=== PATIENT | male | born 1945 | race Caucasian/White ===

== ENCOUNTER 2021-04-07 06:24 | Day surgery (SDC) | payer OTHER ==
[2021-04-07] MEDS ORDERED: NA CHLORIDE 0.9% 500 ML ONE (06:34)
[2021-04-07 06:58] VITALS: TEMP 97
[2021-04-07] MEDS ORDERED: METOPROLOL TARTRATE 5 MG/5 ML INJ IV ONE (07:01)
[2021-04-07] MEDS ORDERED: FENTANYL CITR 100 MCG/2 ML ONE (07:01)
[2021-04-07] MEDS ORDERED: MIDAZOLAM HCL 2 MG/2 ML INJ ONE ×2 (07:02→07:03)
[2021-04-07] MEDS ORDERED: ATROPINE SULF 1 MG/10 ML SYR IV ONE (07:02)
[2021-04-07] MEDS ORDERED: FLUMAZENIL 0.1 MG/ML (5 mL VIAL) IV ONE (07:02)
[2021-04-07] MEDS ORDERED: MIDAZOLAM HCL 5 ML ONE (08:10)
[2021-04-07 09:04] VITALS: BP 97/72; O2SAT 98
--- NOTE | 2021-04-07 09:26 | OP ---
Date of Procedure: 04/07/2021 Surgeon: DANNIELLE ECHEVERRIA Procedure Performed: Synchronized electrocardioversion. Indication: Symptomatic atrial fibrillation. Description Of Procedure: After risks, benefits, and alternatives including stroke explained to him, he agreed to the cardioversion. Patient was brought into the cardiac catheterization laboratory and IV line was established. Then 5 mg of Versed IV was given and the patient was deeply sedated, enlar ged closely and then synchronized 200 joules. Electrocardioversion was performed successfully conver ting the rhythm into sinus rhythm. The patient was stable and then sent to recovery in stable condit ion. Conclusions: 1.Successful electrical cardioversion. 2.Sinus rhythm. Plan: Continue amiodarone and Eliquis. SR/MODL Voice ID: [id number] Report ID: [id number]
== END 2021-04-07 09:45 | disposition home or self-care (01) ==
LOC: CCL 06:24
PROVIDERS: ATTEND Internal Medicine
DX: I48.91 Unspecified atrial fibrillation (principal); I11.0 Hypertensive heart disease with heart failure; I50.9 Heart failure, unspecified; E11.9 Type 2 diabetes mellitus without complications; E78.5 Hyperlipidemia, unspecified; Z79.01 Long term (current) use of anticoagulants; Z79.82 Long term (current) use of aspirin; Z79.899 Other long term (current) drug therapy; Z88.2 Allergy status to sulfonamides; Z20.822 Contact with and (suspected) exposure to COVID-19
CPT/HCPCS: 36415; 82947; 85730; 92960; U0003; J2250 ×2; J7040; J3010

== ENCOUNTER 2021-04-26 14:44 | Emergency (ER) | payer OTHER ==
--- OUTSIDE RECORDS SUMMARY | 2021-04-26 14:52 | XMS REPORT | Continuity of Care Document ---
:1945 Author Organization [facility] t Address 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 MANAGER, L Attending Clinician Ranjit RECREATION ATTENDANT SUPERVISOR Attending Clinician RANJIT Attending Clinician Unavailable [id number] Admitting Clinician Unavailable SHAUN COHEN Admitting Clinician Unavailable Shaun Cohen MD Admitting Clinician Payers Payer Name Policy Type Policy Number Effective Date Expiration Date S ource Problems Condition Condition Condition Status Onset Resolution Last Treating Co mments Source Name Details Category Date Date Treatment Clinician Date PONCHO (acute PONCHO (acute Disease Active U nivers kidney kidney 2-26 ity of injury) injury) 00:00: [place] [facility] Atrial Atrial Disease Active Univers fibrillati fibrillati 1-14 it y of on on 00:00: [place] [facility] Abdominal Abdominal Disease Active Uni vers pain pain 1-12 ity of 00:00: [place] [facility] Allergies, Adverse Reactions, Alerts Allergy Allergy Status Severity Reaction(s) Onset Inactive Treating Comm ents Source Name Type Date Date Clinician Sulfa Propensi Active Unknown - Unknown Univ ers (Sulfona ty to See comments 1-12 reaction, ity of mide adverse 00:00: as child [place] Antibiot reaction 00 was Medica l ics) s allergic Branch SULFA Drug Active Unknown-Cmnt Univ ers (SULFONA Class 1-12 ity of MIDE 00:00: [place] ANTIBIOT 00 Medical ICS) Branch Social History Social Habit Start Date Stop Date Quantity Comments Source Exposure to Not sure [facility] SARS-CoV-2 (event) Medica l Branch Tobacco use and 2021-02-22 2021-02-22 Never used [facility] exposure 00:00:00 00:00:00 Medical Branch [birth year] [facility] 00:00:00 00:00:00 Medical Branch Smoking Status Start Date Stop Date Source Never smoker [facility] Medications Ordered Filled Start Stop Current Ordering Indication Dosage Frequency Signature Comments Components Source Medication Medication Date Date Medication? Clinician (SIG) Name Name perflutren 2021- No [id number] 2mL 2 mL, IV Univers lipid -04-10 Push, ity of microsphere 18:45: 18:45 ONCE, 1 [place] 00 :00 dose, On Medical (DEFINITY) Mon Branch injection 2 04/10/21 at mL 1245, Routine brimonidine Yes brimonidin Univers 0.2 % 28 e 0.2 % ity of ophthalmic 18:27: eye drops [place] solution 42 INSTILL 1 Medica l DROP INTO Branch RIGHT EYE TWICE A DAY esomeprazol Yes esomeprazo Univers e 40 mg -28 le ity of capsule 18:27: magnesium [place] 42 40 mg Medical capsule,de Branch layed release metformin Yes 1000mg Take 1,000 Univers ER 500 mg 2-28 mg by ity of 24 hr 18:27: mouth 2 [place] tablet 42 (two) Medical times Branch daily. lamoTRIgine Yes 100mg Take 100 U nivers 25 mg 2-28 mg by ity of tablet 18:27: mouth [place] 42 daily. Medical Branch metoprolol Yes 50mg Take 50 mg U nivers tartrate 50 2-28 by mouth ity of mg tablet 18:27: every [place] [address] morning. Medical Branch QUEtiapine 0 Yes 25mg Take 25 mg U nivers 50 mg 2-28 by mouth ity of tablet 18:27: daily. [place] [address] Medical Branch dorzolamide Yes 4[drp] Place 4 U nivers HCl/timolol 2-28 Drops in ity of maleat 18:27: each eye. [place] (DORZOLAMID Medical E-TIMOLOL Branch OPHTHALMIC) amiodarone 0 Yes 200ug Take 200 Un tyshawn HCl 2-28 mcg by ity of (AMIODARONE 18:27: [place] at [place] ORAL) 42 bedtime. Medical Branch QUEtiapine Yes 25mg Take 25 mg U nivers 25 mg 2-28 by mouth ity of tablet 18:27: at [place] [address] bedtime. Medical Branch brimonidine Yes brimonidin Univers 0.2 % 2-28 e 0.2 % ity of ophthalmic 18:27: eye drops [place] solution 42 INSTILL 1 Medica l DROP INTO Branch RIGHT EYE TWICE A DAY esomeprazol Yes esomeprazo Univers e 40 mg 2-28 le ity of capsule 18:27: magnesium [place] [address] 40 mg Medical capsule,de Branch layed release metformin 0 Yes 1000mg Take 1,000 Univers ER 500 mg 2-28 mg by ity of 24 hr 18:27: mouth 2 [place] tablet 42 (two) Medical times Branch daily. lamoTRIgine 0 Yes 100mg Take 100 U nivers 25 mg 2-28 mg by ity of tablet 18:27: mouth [place] 42 daily. Medical Branch metoprolol Yes 50mg Take 50 mg U nivers tartrate 50 2-28 by mouth ity of mg tablet 18:27: every [place] [address] morning. Medical Branch QUEtiapine 0 Yes 25mg Take 25 mg U nivers 50 mg 2-28 by mouth ity of tablet 18:27: daily. [place] [address] Medical Branch dorzolamide Yes 4[drp] Place 4 U nivers HCl/timolol 2-28 Drops in ity of maleat 18:27: each eye. [place] (DORZOLAMID 42 Medical E-TIMOLOL Branch OPHTHALMIC) amiodarone Yes 200ug Take 200 Un tyshawn HCl 2-28 mcg by ity of (AMIODARONE 18:27: mouth at [place] ORAL) 42 bedtime. Medical Branch QUEtiapine Yes 25mg Take 25 mg U nivers 25 mg 28 by mouth ity of tablet 18:27: at [place] 42 bedtime. Medical Branch regadenoson 2021- No [id number] .4mg 0.4 mg, Univers (LEXISCAN) 04-10 Slow IV ity o f injection 16:15: 15:40 Push, [place] 0.4 mg 00 :00 ONCE, 1 Medical dose, On [facility] 04/10/21 at 1015, Routine
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 Restricted medication : TALHA HERNANDEZ tc 2021- No [id number] 43mCi 43 Univer s 99m-tetrofo 04-10 millicurie i ty of smin 15:45: 15:37 , [place] (MYOVIEW) 00 :00 Intravenou Medi ben injection s, ONCE, 1 Bran ch 43 dose, On [facility] 04/10/21 at 0945, Routine KCL 20 2021- No 20meq 20 mEq, Univer s mEq/15 mL 04-10 Oral, ity of solution 20 15:00: 18:41 ONCE, 1 [place] mEq 00 :00 dose, On Medical [facility] 04/10/21 at 0900, Routine magnesium 2021- No 2g 2 g, IV Univ ers sulfate in 04-10 Piggyback, it y of water 2 14:45: 18:41 ONCE, 1 [place] gram/50 mL 00 :00 dose, On Medic al (4 %) [facility] infusion 04/10/21 at g 0845, Routine tc 2021- No [id number] 16.9mCi 16.9 Univ ers 99m-tetrofo 04-10 millicurie i ty of smin 14:10: 14:10 , [place] (MYOVIEW) 00 :00 Intravenou Medi ben injection s, ONCE, 1 Bran ch 16.9 dose, On [facility] 04/10/21 at 0830, Routine HYDROcodone 2021- No 1{tbl} 1 tablet, Univers -acetaminop 04-10 Oral, ity of hen (NORCO 12:30: 11:23 ONCE, 1 [place] as 5) 5-325 mg 00 :00 dose, On Medi ben tablet 1 Mon Branch tablet 04/10/21 at 0630, Routine furosemide Yes [id number] 40mg Take 0.5 Univers 80 mg 04-10 [id number] tablets by ity of tablet 00:00: mouth [place] 00 every Medical morning Branch and evening. furosemide Yes [id number] 40mg Take 0.5 Univers 80 mg 04-10 [id number] tablets by ity of tablet 00:00: mouth [place] 00 every Medical morning Branch and evening. ferrous 2021- Yes [id number] 324mg Take 1 U nivers sulfate 324 04-10 tablet by it y of mg (65 mg 00:00: 04:59 mouth [place] iron) EC 00 :00 every Medical tablet Saturday, Branch Saturday and Saturday for 60 days. ferrous 2021- Yes [id number] 324mg Take 1 U nivers sulfate 324 04-10 tablet by it y of mg (65 mg 00:00: 04:59 mouth [place] iron) EC 00 :00 every Medical tablet Saturday, Branch Saturday and Saturday for 60 days. furosemide 2021- No [id number] 80mg Take 1 Univers 80 mg 04-10 [id number] tablet by ity of tablet 00:00: 00:00 mouth [place] 00 :00 every Medical morning Branch and evening for 90 days. furosemide Yes 40mg 40 mg, Unive rs (LASIX) 04-09 Slow IV ity of injection 20:00: Push, Q8H, [place] 40 mg 00 First dose Medical (after Branch last modificati on) on 04/09/21 at 1400, Until Discontinu ed, Routine KCL 20 2021- No 40meq 40 mEq, Univer s mEq/15 mL 04-09 Oral, ity of solution 40 16:15: 16:52 ONCE, 1 [place] mEq 00 :00 dose, On Medical [facility] 04/09/21 at 1015, Routine magnesium 2021- No 4g 4 g, IV Univ ers sulfate in 04-09 Piggyback, it y of water 4 09:00: 16:52 ONCE, 1 [place] gram/50 mL 00 :00 dose, On Medic al (8 %) IV [facility] Piggyback 4 04/09/21 at g 0300, Routine potassium 2021- No 20meq 20 mEq, IV Univers chloride 20 04-09 Piggyback, i ty of mEq/100 mL 08:00: 13:50 Q2H, 2 [place] (KCL) 20 00 :00 doses, Medical mEq/100 mL First dose [facility] RTU IVPB 20 on [place] mEq 04/09/21 at 0200, Last dose on [place] 04/09/21 at 0400, 100 mL melatonin Yes 6mg 6 mg, Univers (MELATIN) 04-09 Oral, QHS, ity of tablet 6 mg 03:00: First dose [place] 00 on [facility] 04/08/21 at Branch 2100, Until Discontinu ed, Routine atorvastati Yes 40mg 40 mg, Univ ers n (LIPITOR) 04-09 Oral, QHS, it y of tablet 40 03:00: First dose [place] mg 00 on [facility] 04/08/21 at Branch 2100, Until Discontinu ed, Routine amiodarone Yes 200mg 200 mg, Uni vers (PACERONE) 04-09 Oral, QHS, ity of tablet 200 03:00: First dose [place] mg 00 on [facility] 04/08/21 at Branch 2100, Until Discontinu ed lidocaine 2021- No 1{patch 1 Patch, Univers (LIDODERM) 04-08 } Topical, ity of 5 % (700 18:00: 05:45 Administer [place] mg/patch) 00 :00 over 12 Medical patch 1 Hours, Branch Patch ONCE, 1 dose, On [facility] 04/08/21 at 1200, KHADAR magnesium 0 2021- No 4g 4 g, IV Univ ers sulfate in 04-08 Piggyback, it y of water 4 15:30: 16:25 ONCE, 1 [place] gram/50 mL 00 :00 dose, On Medic al (8 %) IV [facility] Branch Piggyback 4 04/08/21 at g 0930, Routine metoprolol Yes 50mg 50 mg, Unive rs tartrate 04-08 Oral, QAM, ity o f (LOPRESSOR) 15:00: First dose [place] tablet 50 00 on Sat Medical mg 04/08/21 at Branch 0900, Until Discontinu ed, Routine lamoTRIgine Yes 100mg 100 mg, Un tyshawn (LAMICTAL) 04-08 Oral, ity of tablet 100 15:00: DAILY, [place] mg 00 First dose Medical on [facility] Branch 04/08/21 at 0900, Until Discontinu ed, Routine pantoprazol Yes 40mg 40 mg, Univ ers e 04-08 Oral, ity of (PROTONIX) 15:00: DAILY, [place] EC tablet 00 First dose Medi ben 40 mg on [facility] Branch 04/08/21 at 0900, Until Discontinu ed, Routine aspirin Yes 81mg 81 mg, Univers chewable 04-08 Oral, ity of tablet 81 15:00: DAILY, [place] mg 00 First dose Medical on [facility] Branch 04/08/21 at 0900, Until Discontinu ed, Routine QUEtiapine Yes 25mg 25 mg, Unive rs (SEROQUEL) 04-08 Oral, BID, ity of tablet 25 14:00: First dose [place] mg 00 on [facility] Medical 04/08/21 at Branch 0800, Until Discontinu ed, Routine dorzolamide Yes 1[drp] 1 Drop, U nivers -timoloL 04-08 Both Eyes, ity o f (COSOPT) 14:00: BID, First [place] as 22.3-6.8 00 dose on Medical mg/mL [facility] Branch ophthalmic 04/08/21 at drops 1 0800, Drop Until Discontinu ed furosemide 2021- No 40mg 40 mg, Univ ers (LASIX) 04-08 Slow IV ity of injection 14:00: 17:17 Push, [place] 40 mg 00 :21 Q12H, Medical First dose Branch on 04/08/21 at 0800, Until Discontinu ed, Routine brimonidine 2022-0 Yes 1[drp] 1 Drop, U nivers (ALPHAGAN) 2- Both Eyes, ity of 0.2 % 12:00: Q8H, First [place] ophthalmic 00 dose on Medica l solution 1 Sat Branch Drop 04/08/21 at 0600, Until Discontinu ed, Routine HEPARIN 2021- No 4000U 4,000 Univers SODIUM 2-26 02-26 Units, IV ity of (PORCINE) 12:00: 13:30 Push, [place] 1,000 00 :00 ONCE, 1 Medical UNIT/ML dose, On Branch BOLUS ACS Sat ORDER SET 04/08/21 at 0600, KHADAR heparin Yes 3000U FOR Univers (1,000 2-26 REBOLUSING ity of unit/mL, 10 11:52: , Starting [place] mL vial) 14 on Sat Medical for 04/08/21 at Branch Rebolusing 0552, Until Discontinu ed, Routine
Dosing based on aPPT testing parameters (refer to continuous heparin drip order).
heparin Yes 1000U/h 1,000 Univer s 25,000 2-26 Units/hr ity of Units/250 11:52: (10 [place] mL 14 mL/hr), IV Medical (Premixed Infusion, Branc h Bag) in TITRATE, 0.45 % NS Parameters in Admin. Instr., Starting on 04/08/21 at 0552
CA UTION - If LMWH given in ER, AVOID bolus and start next dose/drip 12 hrs after ER dosage.&nb sp; M ust program rate using programmab le infusion pump.&nbsp ; Malka ck with the ordering provider first prior to any administra tion should the patient be on existing/a dditional anticoagul ant therapy. Rang e, Dosing and Testing: &nbs p;FOR [place], [facility], AND [facility] ONLY - aPTT < 35: & nbsp;Bolus 5000 units, increase rate 300 units/hr&n bsp; - aPTT 35-44:&nbs p; Ahmet vanna 3000 units, increase rate 200 units/hr&n bsp; - aPTT 45-54:&nbs p; In crease rate 100 units/hr&n bsp; - aPTT 55-85:&nbs p; NO CHANGE&nbs p; - aPTT 86-95:&nbs p; De crease rate 100 units/hr&n bsp; - aPTT 96-120:&nb sp; H old 30 minutes, decrease rate 150 units/hr&n bsp; - aPTT > 120: Hold 60 minutes, decrease rate 200 units/hr&n bsp; Check aPTT 6 hours after initiation , then Q6H after every change, aPTT Q12H once therapeuti c levels are reached.&n bsp; &nbs p; __ &n bsp;FOR [facility] ONLY - aPTT < 40: & nbsp;Bolus 5000 units, increase rate 300 units/hr&n bsp; - aPTT 40-49:&nbs p; Ahmet vanna 3000 units, increase rate 200 units/hr&n bsp; - aPTT 50-59:&nbs p; In crease rate 100 units/hr&n bsp; - aPTT 60-85:&nbs p; NO CHANGE&nbs p; - aPTT 86-95:&nbs p; De crease rate 100 units/hr&n bsp; - aPTT 96-120:&nb sp; H old 30 minutes, decrease rate 150 units/hr&n bsp; - aPTT > 120: Hold 60 minutes, decrease rate 200 units/hr&n bsp; Check aPTT 6 hours after initiation , then Q6H after every change, aPTT Q12H once therapeuti c levels are reached.&n bsp; DO NOT ADJUST INITIAL BOLUS OR INITIAL INFUSION RATE.
acetaminoph Yes 650mg 650 mg, Un tyshawn en 04-08 Oral, ity of (TYLENOL) 11:36: Q6HPRN, [place] tablet 650 25 Starting Medic al mg on Sat Branch 04/08/21 at 0536, Until Discontinu ed, Routine, Pain (scale 1-3) alum-mag 2021- No 30mL 30 mL, Univer s hydroxide-s 04-08 Oral, ONCE i ty of imeth 09:00: 09:09 NOW, 1 [place] (MAALOX 00 :00 dose, On Medical PLUS / Sat Branch MAG-AL 04/08/21 at PLUS) 0300, KHADAR 200-200-20 mg/5 mL suspension 30 mL NaCl 0.9% 2021- No 1000mL at 999 Uni vers (NS) bolus 04-08 mL/hr, ity of infusion 05:00: 06:07 1,000 mL, [place] as 1,000 mL 00 :00 IV Medical Infusion, Branch ONCE, 1 dose, On 04/07/21 at 2300, STAT piperacilli 2021- No 2.25g 2.25 g, IV Univers n-tazobacta 04-08 Piggyback, i ty of m (ZOSYN) 05:00: 04:32 ONCE, 1 [place] 2.25 g in 00 :00 dose, On Medica l NaCl 0.9% Fri Branch (NS) 100 mL 04/07/21 at MINI-BAG 2300, Administer over 30 Minutes, 100 mL
R aric for Anti-Infec tive: Documented Infection< br>Documen liborio Infection Site: Abdominal< br>Duratio n of Therapy: Other (see Comments) FENTanyl PF 2021- No 100ug 100 mcg, Univers (SUBLIMAZE 04-08 Slow IV ity o f (PF)) 04:00: 03:31 Push, [place] injection 00 :00 ONCE, 1 Medical 100 mcg dose, On Branch 04/07/21 at 2200, STAT NaCl 0.9% 2021- No 1000mL at 999 Uni vers (NS) bolus 04-08 mL/hr, ity of infusion 02:30: 03:36 1,000 mL, [place] as 1,000 mL 00 :00 IV Medical Infusion, Branch ONCE, 1 dose, On 04/07/21 at 2030, STAT iohexol 2021- No [id number] 120mL 120 mL, Univers (OMNIPAQUE 04-08 Intravenou it y of 350 02:00: 01:54 s, ONCE, 1 [place] BULK-100 00 :00 dose, On Medical mL) Fri Branch injection 04/07/21 at 120 mL 2000, Routine morpHINE 2021- No 4mg 4 mg, Slow Un tyshawn injection 4 04-08 IV Push, ity of mg 02:00: 01:06 ONCE, 1 [place] 00 :00 dose, On Medical Fri Branch 04/07/21 at 2000, STAT traZODone Yes [id number] 100mg Take 1 Univers 100 mg 2-11 tablet by ity of tablet 00:00: mouth at [place] 00 bedtime. Medical Branch traZODone 2021- No [id number] 100mg Take 1 Univers 100 mg 2-11 04-08 tablet by ity of tablet 00:00: 00:00 mouth at [place] 00 :00 bedtime. Medical Branch cyanocobala 2021- No [id number] 2000ug Univers min 03-01 ity of (VITAMIN 22:45: 21:36 [place] B12) 00 :00 Medical injection Branch 2,000 mcg cyanocobala 2021- No [id number] 2000ug 2,000 mcg, Univers min 03-01 Intramuscu ity of (VITAMIN 22:45: 21:36 lar, ONCE, [place] B12) 00 :00 1 dose, On Medical injection Wed Branch 2,000 mcg 03/01/21 at 1645, Routine traZODone 2021- No [id number] 100mg Take 1 Univers 100 mg 03-01 02-11 tablet by ity of tablet 00:00: 00:00 mouth at [place] 00 :00 bedtime. Medical Branch brimonidine Yes brimonidin Univers 0.2 % 1-17 e 0.2 % ity of ophthalmic 06:40: eye drops [place] solution 02 INSTILL 1 Medica l DROP INTO Branch RIGHT EYE TWICE A DAY esomeprazol Yes esomeprazo Univers e 40 mg 1-17 le ity of capsule 06:40: magnesium [place] 02 40 mg Medical capsule,de Branch layed release metformin Yes metformin Uni vers ER 500 mg 1-17 ER 500 mg ity o f 24 hr 06:40: tablet,ext [place] tablet 02 ended Medical release 24 Branch hr TAKE 2 TABLETS TWICE A DAY lamoTRIgine Yes lamotrigin Univers 25 mg 1-17 e 25 mg ity of tablet 06:40: tablet [facility] brimonidine Yes brimonidin Univers 0.2 % -17 e 0.2 % ity of ophthalmic 06:40: eye drops [place] solution 02 INSTILL 1 Medica l DROP INTO Branch RIGHT EYE TWICE A DAY esomeprazol Yes esomeprazo Univers e 40 mg 1-17 le ity of capsule 06:40: magnesium [place] 02 40 mg Medical capsule,de Branch layed release metformin Yes metformin Uni vers ER 500 mg 1-17 ER 500 mg ity o f 24 hr 06:40: tablet,ext [place] tablet 02 ended Medical release 24 Branch hr TAKE 2 TABLETS TWICE A DAY lamoTRIgine Yes lamotrigin Univers 25 mg 1-17 e 25 mg ity of tablet 06:40: tablet [facility] brimonidine Yes brimonidin Univers 0.2 % 1-17 e 0.2 % ity of ophthalmic 06:40: eye drops [place] solution 02 INSTILL 1 Medica l DROP INTO Branch RIGHT EYE TWICE A DAY esomeprazol Yes esomeprazo Univers e 40 mg 1-17 le ity of capsule 06:40: magnesium [place] 02 40 mg Medical capsule,de Branch layed release metformin Yes metformin Uni vers ER 500 mg 1-17 ER 500 mg ity o f 24 hr 06:40: tablet,ext [place] tablet 02 ended Medical release 24 Branch hr TAKE 2 TABLETS TWICE A DAY lamoTRIgine 0 Yes lamotrigin Univers 25 mg 1-17 e 25 mg ity of tablet 06:40: tablet [place] 02 Medical Branch aspirin 81 0 Yes [id number] 81mg Take 1 Univers mg chewable 1-16 tablet by ity of tablet 00:00: mouth [place] 00 daily. Medical Branch lisinopriL 0 Yes [id number] 5mg Take 1 Univers 5 mg tablet 1-16 tablet by ity of 00:00: mouth [place] 00 daily. Medical Branch venlafaxine Yes [id number] 150mg Take 1 Univers XR 150 mg 1-16 capsule by ity of 24 hr 00:00: mouth [place] capsule 00 daily with Medica l breakfast. Branch clonazePAM 0 Yes [id number] .25mg Take 0.5 Univers 0.5 mg 1-16 tablets by ity of tablet 00:00: mouth [place] 00 daily. Medical Branch aspirin 81 0 Yes [id number] 81mg Take 1 Univers mg chewable 1-16 tablet by ity of tablet 00:00: mouth [place] 00 daily. Medical Branch lisinopriL 0 Yes [id number] 5mg Take 1 Univers 5 mg tablet 1-16 tablet by ity of 00:00: mouth [place] 00 daily. Medical Branch venlafaxine 0 Yes [id number] 150mg Take 1 Univers XR 150 mg 1-16 capsule by ity of 24 hr 00:00: mouth [place] capsule 00 daily with Medica l breakfast. Branch clonazePAM 0 Yes [id number] .25mg Take 0.5 Univers 0.5 mg 1-16 tablets by ity of tablet 00:00: mouth [place] 00 daily. Medical Branch aspirin 81 0 Yes [id number] 81mg Take 1 Univers mg chewable 1-16 tablet by ity of tablet 00:00: mouth [place] 00 daily. Medical Branch lisinopriL 0 Yes [id number] 5mg Take 1 Univers 5 mg tablet 1-16 tablet by ity of 00:00: mouth [place] 00 daily. Medical Branch venlafaxine Yes [id number] 150mg Take 1 Univers XR 150 mg 1-16 capsule by ity of 24 hr 00:00: mouth [place] capsule 00 daily with Medica l breakfast. Branch clonazePAM Yes [id number] .25mg Take 0.5 Univers 0.5 mg 1-16 tablets by ity of tablet 00:00: mouth [place] 00 daily. Medical Branch aspirin 81 Yes [id number] 81mg Take 1 Univers mg chewable 1-16 tablet by ity of tablet 00:00: mouth [place] 00 daily. Medical Branch lisinopriL Yes [id number] 5mg Take 1 Univers 5 mg tablet 1-16 tablet by ity of 00:00: mouth [place] 00 daily. Medical Branch aspirin 81 Yes [id number] 81mg Take 1 Univers mg chewable 1-16 tablet by ity of tablet 00:00: mouth [place] 00 daily. Medical Branch lisinopriL Yes [id number] 5mg Take 1 Univers 5 mg tablet 1-16 tablet by ity of 00:00: mouth [place] 00 daily. Medical Branch venlafaxine 2021- No [id number] 150mg Take 1 Univers XR 150 mg 1-16 -26 capsule by ity of 24 hr 00:00: 00:00 mouth [place] capsule 00 :00 daily with Medica l breakfast. Branch clonazePAM 2021- No [id number] .25mg Take 0.5 Univers 0.5 mg 1-16 -26 tablets by ity of tablet 00:00: 00:00 mouth [place] 00 :00 daily. Medical Branch atorvastati Yes [id number] 40mg Take 1 Univers n 40 mg 1-15 tablet by ity of tablet 00:00: mouth at [place] 00 bedtime. Medical Branch apixaban 5 Yes 1358 5mg Take 1 Unive rs mg tablet 1-15 tablet by ity o f 00:00: mouth 2 [place] 00 (two) Medical times Branch daily. Indication s: atrial fibrillati on metoprolol Yes [id number] 50mg Take 1 Univers succinate 1-15 tablet by ity o f XL 50 mg 24 00:00: mouth 2 [place] as hr tablet 00 (two) Medical times Branch daily. polyethylen Yes [id number] 17g Take 1 Univers e glycol 1-15 Packet by ity of 3350 17 00:00: mouth 2 [place] gram powder 00 (two) Medical times Branch daily. ramelteon 8 0 Yes [id number] 8mg Take 1 Univers mg tablet 1-15 tablet by ity o f 00:00: mouth at [place] 00 bedtime. Medical Branch atorvastati Yes [id number] 40mg Take 1 Univers n 40 mg 1-15 tablet by ity of tablet 00:00: mouth at [place] 00 bedtime. Medical Branch apixaban 5 Yes 1358 5mg Take 1 Unive rs mg tablet 1-15 tablet by ity o f 00:00: mouth 2 [place] (two) Medical times Branch daily. Indication s: atrial fibrillati on metoprolol Yes [id number] 50mg Take 1 Univers succinate 1-15 tablet by ity o f XL 50 mg 24 00:00: mouth 2 [place] as hr tablet 00 (two) Medical times Branch daily. polyethylen Yes [id number] 17g Take 1 Univers e glycol 1-15 Packet by ity of 3350 17 00:00: mouth 2 [place] gram powder 00 (two) Medical times Branch daily. ramelteon 8 Yes [id number] 8mg Take 1 Univers mg tablet 1-15 tablet by ity o f 00:00: mouth at [place] 00 bedtime. Medical Branch atorvastati Yes [id number] 40mg Take 1 Univers n 40 mg 1-15 tablet by ity of tablet 00:00: mouth at [place] 00 bedtime. Medical Branch apixaban 5 Yes 1358 5mg Take 1 Unive rs mg tablet 1-15 tablet by ity o f 00:00: mouth 2 [place] 00 (two) Medical times Branch daily. Indication s: atrial fibrillati on metoprolol 0 Yes [id number] 50mg Take 1 Univers succinate 1-15 tablet by ity o f XL 50 mg 24 00:00: mouth 2 [place] as hr tablet 00 (two) Medical times Branch daily. polyethylen 0 Yes [id number] 17g Take 1 Univers e glycol 1-15 Packet by ity of 3350 17 00:00: mouth 2 [place] gram powder 00 (two) Medical times Branch daily. ramelteon 8 Yes [id number] 8mg Take 1 Univers mg tablet 1-15 tablet by ity o f 00:00: mouth at [place] 00 bedtime. Medical Branch atorvastati Yes [id number] 40mg Take 1 Univers n 40 mg 1-15 tablet by ity of tablet 00:00: mouth at [place] 00 bedtime. Medical Branch apixaban 5 Yes 1358 5mg Take 1 Unive rs mg tablet 1-15 tablet by ity o f 00:00: mouth 2 [place] 00 (two) Medical times Branch daily. Indication s: atrial fibrillati on polyethylen Yes [id number] 17g Take 1 Univers e glycol 1-15 Packet by ity of 3350 17 00:00: mouth 2 [place] gram powder 00 (two) Medical times Branch daily. atorvastati Yes [id number] 40mg Take 1 Univers n 40 mg 1-15 tablet by ity of tablet 00:00: mouth at [place] 00 bedtime. Medical Branch apixaban 5 Yes 1358 5mg Take 1 Unive rs mg tablet 1-15 tablet by ity o f 00:00: mouth 2 [place] 00 (two) Medical times Branch daily. Indication s: atrial fibrillati on polyethylen Yes [id number] 17g Take 1 Univers e glycol 1-15 Packet by ity of 3350 17 00:00: mouth 2 [place] gram powder 00 (two) Medical times Branch daily. metoprolol 2021- No [id number] 50mg Take 1 Univers succinate 1-15 -26 tablet by ity of XL 50 mg 24 00:00: 00:00 mouth 2 [place] hr tablet 00 :00 (two) Medical times Branch daily. ramelteon 8 2021- No [id number] 8mg Take 1 Univers mg tablet 1-15 02-26 tablet by ity of 00:00: 00:00 mouth at [place] 00 :00 bedtime. Medical Branch JARDIANCE 2020-02 Yes Univers 25 mg Tab 1-19 ity of 00:00: [place] 00 Medical Branch JARDIANCE 2020-02 Yes Univers 25 mg Tab 1-19 ity of 00:00: [place] 00 Medical Branch JARDIANCE 2020-02 Yes Univers 25 mg Tab 1-19 ity of 00:00: Medical Branch JARDIANCE 2020-02 Yes Univers 25 mg Tab 1-19 ity of 00:00: [place] [facility] JARDIANCE 2020-02 Yes Univers 25 mg Tab 1-19 ity of 00:00: [place] [facility] Immunizations Ordered Filled Immunization Date Status Comments [facility] e Immunization Name Name SARS-COV-2 COVID-19 2020-05-28 Completed Unive rsity of MODERNA VACCINE 00:00:00 [facility] SARS-COV-2 COVID-19 2020-05-28 Completed Unive rsity of MODERNA VACCINE 00:00:00 [facility] SARS-COV-2 COVID-19 2020-05-28 Completed Unive rsity of MODERNA VACCINE 00:00:00 [facility] SARS-COV-2 COVID-19 2020-05-28 Completed Unive rsity of MODERNA VACCINE 00:00:00 [facility] SARS-COV-2 COVID-19 2020-05-28 Completed Unive rsity of MODERNA VACCINE 00:00:00 [facility] SARS-COV-2 COVID-19 2020-04-27 Completed Unive rsity of MODERNA VACCINE 00:00:00 [facility] SARS-COV-2 COVID-19 2020-04-27 Completed Unive rsity of MODERNA VACCINE 00:00:00 [facility] SARS-COV-2 COVID-19 2020-04-27 Completed Unive rsity of MODERNA VACCINE 00:00:00 [facility] SARS-COV-2 COVID-19 2020-04-27 Completed Unive rsity of MODERNA VACCINE 00:00:00 [facility] SARS-COV-2 COVID-19 2020-04-27 Completed Unive rsity of MODERNA VACCINE 00:00:00 [facility] Pneumococcal 13 2014-10-11 Completed Universit y of Conjugate, PCV13 00:00:00 [facility] dical (Prevnar 13) Branch Pneumococcal 13 2014-10-11 Completed Universit y of Conjugate, PCV13 00:00:00 [facility] dical (Prevnar 13) Branch Pneumococcal 13 2014-10-11 Completed Universit y of Conjugate, PCV13 00:00:00 [facility] dical (Prevnar 13) Branch Pneumococcal 13 2014-10-11 Completed Universit y of Conjugate, PCV13 00:00:00 [facility] dical (Prevnar 13) Branch Pneumococcal 13 2014-10-11 Completed Universit y of Conjugate, PCV13 00:00:00 [facility] dical (Prevnar 13) Branch Zoster(Zostavax)( 2009-11-02 Completed Unive rsity of ingles) 00:00:00 [facility] Zoster(Zostavax)( 2009-11-02 Completed Unive rsity of ingles) 00:00:00 [facility] Zoster(Zostavax)( 2009-11-02 Completed Unive rsity of ingles) 00:00:00 [facility] Zoster(Zostavax)( 2009-11-02 Completed Unive rsity of ingles) 00:00:00 [facility] Zoster(Zostavax)( 2009-11-02 Completed Unive rsity of ingles) 00:00:00 [facility] Vital Signs Vital Name Observation Time Observation Value Comments Source Systolic blood 2021-04-10 21:57:00 130 mm[Hg] Univer sity of pressure [facility] Diastolic blood 2021-04-10 21:57:00 75 mm[Hg] Unive rsity of pressure [facility] Heart rate 2021-04-10 21:57:00 67 /min [facility] Body temperature 2021-04-10 21:57:00 35.78 Agatha [facility] rate 2021-04-10 21:57:00 18 /min [facility] Oxygen saturation in 2021-04-10 21:57:00 99 /min [facility] Arterial blood by [facility] Pulse oximetry Branch Body height 2021-04-10 18:43:00 182.9 cm [facility] Body weight 2021-04-10 18:43:00 88.451 kg [facility] BMI 2021-04-10 18:43:00 26.45 kg/m2 [facility] Systolic blood 2021-04-08 06:00:00 151 mm[Hg] Univer sity of pressure [facility] Diastolic blood 2021-04-08 06:00:00 98 mm[Hg] Unive rsity of pressure [facility] Heart rate 2021-04-08 06:00:00 65 /min Universi ty of [facility] Respiratory rate 2021-04-08 06:00:00 18 /min Univ ersity of [facility] Oxygen saturation in 2021-04-08 06:00:00 99 /min University of Arterial blood by [facility] Pulse oximetry Branch Body temperature 2021-04-08 00:31:00 35.78 Agatha Univ ersity of [facility] Body height 2021-04-08 00:31:00 182.9 cm Universi ty of [facility] Body weight 2021-04-08 00:31:00 87.544 kg Universi ty of [facility] BMI 2021-04-08 00:31:00 26.18 kg/m2 Universi ty [facility] Systolic blood 2021-03-01 19:25:00 130 mm[Hg] Univer sity of [facility] Diastolic blood 2021-03-01 19:25:00 95 mm[Hg] Unive rsity of [facility] Heart rate 2021-03-01 19:25:00 123 /min Universi ty [facility] Oxygen saturation in 2021-03-01 19:25:00 96 /min University of Arterial blood by [facility] Pulse oximetry Branch Body temperature 2021-03-01 19:23:00 36.94 Agatha Univ ersity of [facility] Respiratory rate 2021-03-01 19:23:00 20 /min Univ ersity of [facility] Body weight 2021-03-01 19:23:00 85.276 kg Universi ty of [facility] BMI 2021-03-01 19:23:00 25.50 kg/m2 Universi ty [facility] Procedures Procedure Date / Time Performing Clinician Source Performed ACTIVATED PARTIAL 2021-04-10 20:34:00 Cooper [facility] TRANSTHORACIC ECHO (TTE) 2021-04-10 18:10:00 Rodolfo Khan [facility] COMPLETE W/ CONTRAST [facility] NM MYOCARDIUM PERFUSION 2021-04-10 16:36:00 Erin [facility] STRESS AND REST Medical Branch MAGNESIUM 2021-04-10 08:08:00 Erin, [facility] BASIC METABOLIC PANEL 2021-04-10 08:08:00 [facility] (NA, K, CL, CO2, GLUCOSE, Medica l Branch BUN, CREATININE, CA) CBC WITHOUT DIFF 2021-04-10 08:08:00 Erin, [facility] PROTHROMBIN TIME / INR 2021-04-10 08:08:00 Erin [facility] ACTIVATED PARTIAL 2021-04-10 08:08:[facility]ON [facility]EL 2021-04-09 18:03:00 Erin, [facility] ACTIVATED PARTIAL 2021-04-09 18:03:00 Ludy [facility] MAGNESIUM 2021-04-09 07:18:00 Erin, [facility] FERRITIN SERUM 2021-04-09 07:18:00 Erin, [facility] HEPATIC FUNCTION PANEL 2021-04-09 07:18:00 [facility] ([id number]) (ALB,T.PRO,BILI Medical Branch T,BU/BC,ALT,AST,ALK PHOS) BASIC METABOLIC PANEL 2021-04-09 07:18:00 [facility] (NA, K, CL, CO2, GLUCOSE, Medica l Branch BUN, CREATININE, CA) CBC WITH DIFF 2021-04-09 07:18:00 [place], [facility] ACTIVATED PARTIAL 2021-04-09 05:02:00 [place], [facility] ACTIVATED PARTIAL 2021-04-08 19:49:00 [place], [facility] HEPARIN ANTI-XA, 2021-04-08 19:49:00 [facility] UNFRACTION[facility] HE[facility] Medical B ranch PHOSPHORUS 2021-04-08 12:37:00 [place], [facility] MAGNESIUM 2021-04-08 12:37:00 [place], [facility] HEPATIC FUNCTION PANEL 2021-04-08 12:37:00 [place], [facility] ([id number]) (ALB,T.PRO,BILI Medical Branch T,BU/BC,ALT,AST,ALK PHOS) BASIC METABOLIC PANEL 2021-04-08 12:37:00 [facility] (NA, K, CL, CO2, GLUCOSE, Medica l Branch BUN, CREATININE, CA) CBC WITH DIFF 2021-04-08 12:37:00 [facility] PROTHROMBIN TIME / INR 2021-04-08 12:37:00 [facility] ACTIVATED PARTIAL 2021-04-08 12:37:00 [facility] LACTIC ACID WHOLE BLOOD 2021-04-08 10:39:00 [facility] LACTIC ACID WHOLE BLOOD 2021-04-08 04:35:00 Fadi [facility] COVID-19 (ID NOW RAPID 2021-04-08 03:54:00 Salma Aponte [facility] TESTING) Medical Branch US GALL BLADDER 2021-04-08 03:21:59 Fadi [facility] CT ABDOMEN PELVIS W 2021-04-08 01:59:11 Salma Aponte [facility] CONTRAST [facility] Branch XR CHEST 1 VW 2021-04-08 01:16:16 Fadi [facility] LIPASE 2021-04-08 01:10:00 Fadi [facility] TROPONIN I 2021-04-08 01:10:00 Fadi [facility] COMP. METABOLIC PANEL 2021-04-08 01:10:00 [facility] ([id number] Medical Branch CBC WITH DIFF 2021-04-08 01:10:00 [facility] / INR 2021-04-08 01:10:00 Salma Aponte [facility] ACTIVATED PARTIAL 2021-04-08 01:10:00 [facility]-TERMINAL PRO-BNP 2021-04-08 01:10:00 [facility] LACTIC ACID WHOLE BLOOD 2021-04-08 01:10:00 Salma Aponte [facility] NOTICE OF PRIVACY 2021-04-08 00:27:19 Doctor BetinassYeison acevedo [facility] PRACTICES [facility] CONSENT/REFUSAL FOR 2021-04-08 00:26:04 Doctor Unassigned, Brendon [facility] DIAGNOSIS AND TREATMENT [facility] Encounters Start End Encounter Admission Attending Care Care Encounter Source Date/Time Date/Time Type Type Clinicians Facility Department ID 2021-03-27 Outpatient 3 [id number] [facility] OTH [id number] [facility] 14:33:46 0214 2021-03-22 Outpatient 3 [id number] [facility] REF [id number] [facility] 13:12:36 0209 2021-04-14 2021-04-14 Outpatient Paige SANTANA [facility] [id number] Univers 14:00:00 14:00:[id number] [facility] 2021-04-11 2021-04-11 Transition RADHA Moise [id number] Univers 00:00:00 00:00:00 of Care An PENNY [id number] [facility] 4.2.7.2.686 [facility] [id number] [facility] 403 Branch 2021-04-08 2021-04-10 [id number] Univers 02:02:00 18:25:00 [facility] 2021-04-08 2021-04-10 [facility] Jeff Lai [id number] Univers 02:02:00 18:25:00 Encounter Dedrick Cohen 350.1.13. 10 [facility] 4.2.7.2.686 [place] [id number] [facility] 100 Branch 2021 2021-04-08 [facility] [id number] Univers 18:28:00 00:55:[address] [facility] 2021 2021-04-08 Emergency [facility] [id number] Univers 18:28:00 00:55:00 Salma SKELTON [id number] i ty of [place] [id number] [facility] [address] [place] 2021-03-08 2021-03-08 [facility] [id number] Univers 00:00:00 00:00:00 Renetta SKELTON [id number] i ty [place] [id number] Ak dical NAL 231 [facility] 2021-03-01 2021-03-01 Office Ranjit [facility] [id number] [facility] 13:00:00 14:53:22 Visit Isai SKELTON [id number] ity [facility] [place] [id number] Ak dical NAL 044 [facility] 2021-03-01 2021-03-01 Outpatient R ISAI CHURCH [facility] [id number] Univers 13:00:00 14:53:[address] [facility] Results Test Description Test Time Test Comments Results Result Comments Source aPTT (for use with Heparin Infusion) 2021-04-10 20:59:39 Test Item Value Reference Range Interpretation Comme nts APTT Patient (test code = See_Comment H [ Automated message] The system 3173-2) which generated this result transmitted ref erence range: 26 - 36 Seconds. T he reference range was not u sed to interpret this result as normal/abnormal. Lab Interpretation (test code Abnormal = 04572-4) [facility]OLIC PANEL (NA, K, CL, CO2, GLUCOSE, BUN, CREATININE, CA)2021-04-10 08:47:39 Test Item Value Reference Range Interpretation Comments NA (test code = 135 mmol/L 135-145 7467508382) K (test code = 3.8 mmol/L 3.5-5.0 3101365930) CL (test code = 104 mmol/L 98-108 1182763126) CO2 TOTAL (test code = 25 mmol/L 23-31 7833493636) AGAP (test code = 2-16 6037380821) BUN (test code = 25 mg/dL 7-23 H 7395187854) GLUCOSE (test code = 266 mg/dL 70-110 H 0560730978) CREATININE (test code = 1.23 mg/dL 0.60-1.25 6018531284) CALCIUM (test code = 7.7 mg/dL 8.6-10.6 L 9534375339) eGFR (test code = mL/min/1.73m2 2137988773) MEGHANN (test code = MEGHANN) Association of Glomerular Filtration Rate (GFR) and Staging of Kidney Disease* + --+ --+ ------+| GFR (mL/min/1.73 m2) ?| With Kidney Damage ?| ?Without Kidney Damage+ --------+ --------+ +| ?>90 ?| ?Stage one ?| ? Normal ?+ ---+ ---+ -------+| ?60-89 ?| ?Stage two ?| ? Decreased GFR ? + --+ --+ ------+| ?30-59 ?| ?Stage three ?| ? Stage three ? + --+ --+ ------+| ?15-29 ?| ?Stage four ? | ? Stage four ?+ ---+ ---+ -------+| ?<15 (or dialysis) ? ?| ?Stage five ? | ? Stage five ?+ ---+ ---+ -------+ *Each stage assumes the associated GFR level has been in effect for at least three months. ?Stages 1 to 5, with or without kidney disease, indicate chronic kidney disease. Notes: Determination of stages one and two (with eGFR >59mL/min/1.73 m2) requires estimation of kidney damage for at least three months as defined by structural or functional abnormalities of the kidney, manifested by either:Pathological abnormalities or Markers of kidney damage (including abnormalities in the composition of the blood or urine or abnormalities in imaging tests). Lab Interpretation Abnormal (test code = 80033-0) [facility]39 Test Item Value Reference Range Interpretation Comments MAGNESIUM (test code = 4669539162) 1.8 mg/dL 1.7-2.4 Lab Interpretation (test code = Normal 02125-3) [facility] HospitalaP[facility] (for use with Heparin Infusion)2021-04-10 08:25:37 Test Item Value Reference Range Interpretation Comments APTT Patient (test code See_Comment H [Au tomated message] = 3173-2) The system [place] DEPT. generated this result transmitted ref erence range: 26 - 36 Seconds. The reference range was not used to int erpret this result as normal/abnormal . Lab Interpretation (test Abnormal code = 67075-4) [facility] HospitalPROTHROMBIN TIME / [id number] 08:25:37 Test Item Value Reference Range Interpretation Comments PROTIME PATIENT (test See_Comment H [Auto mated message] code = 5964-2) The system [employer] generated this result transmitted ref erence range: 10.1 - 1 2.6 Seconds. The reference range was not used to int erpret this result as normal/abnormal . INR (test code = 6301-6) Nor mal INR <1.1; Warfarin Therap eutic range 2.0 to 3. 0 or 2.5 to 3.5, dep ending upon the indica tions. Lab Interpretation (test Abnormal code = 93330-5) [facility] HospitalCBC WITHOUT [id number] 08:20:56 Test Item Value Reference Range Interpretation Comments WBC (test code = 6690-2) See_Comment [A utomated message] The system [place] DEPT. generated this result transmit liborio reference range : 4.20 - 10.70 10*3/?L. The reference range was not used to interpret this result as normal/abnormal . RBC (test code = 789-8) See_Comment L [Au tomated message] The system PS DEPT. generated this result transmit liborio reference range : 4.26 - 5.52 10* 6/?L. The reference r yovani was not used to interpret this result as normal/abnormal . HGB (test code = 718-7) 9.5 g/dL 12.2-16.4 L HCT (test code = 4544-3) 30.0 % 38.4-49.3 L MCH (test code = 785-6) 25.6 pg 26.1-32.7 L MCV (test code = 787-2) 80.9 fL 81.7-95.6 L MCHC (test code = 786-4) 31.7 g/dL 31.2-35.0 PLT (test code = 777-3) See_Comment L [Au tomated message] The system PS DEPT. generated this result transmit liborio reference range : 150 - 328 10*3/?L. The reference range was not used to interpret this result as normal/abnormal . MPV (test code = 11.6 fL 9.8-13.0 23180-5) RDW-CV (test code = 19.8 % 12.1-15.4 H 788-0) RDW-SD (test code = 56.7 fL 38.5-51.6 H 22055-2) NRBC x10^3 (test code = <0.01 See_Comment [Au tomated message] 4045998906) The system PS DEPT. generated this result transmit liborio reference range : 10*3/?L. The reference range was not used to interpret this result as normal/abnormal . NRBC/100 WBC (test code See_Comment [Au tomated message] = 3680555153) The system [employer] generated this result transmit liborio reference range : 0.0 - 10.0 /100 WBC s. The reference r yovani was not used to interpret this result as normal/abnormal . IPF % (test code = 4438727042) Lab Interpretation (test Abnormal code = 46113-1) [facility] HospitalIRON [id number] 19:08:59 Test Item Value Reference Range Interpretation Comments IRON (test code = 9896698416) 18 ug/dL 50-160 L TIBC (test code = 8442711608) 409 ug/dL 250-410 % FE SAT (test code = 1657122124) 4 % 20-50 L Lab Interpretation (test code = Abnormal 85355-7) [facility] HospitalFERRITIN [id number] 18:39:35 Test Item Value Reference Range Interpretation Comments FERRITIN (test code = 11.5 ng/mL 18.0-464.0 L 5677530317) MEGHANN (test code = MEGHANN) Biotin has been reported to cause a negative bias, interpret results relative to patient's use of biotin. Lab Interpretation (test Abnormal code = 60653-4) [facility] HospitalaPTT (for use with Heparin Infusion)2021-04-09 18:30:37 Test Item Value Reference Range Interpretation Comments APTT Patient (test code See_Comment H [Au tomated message] = 3173-2) The system [employer] generated this result transmitted ref erence range: 26 - 36 Seconds. The reference range was not used to int erpret this result as normal/abnormal . Lab Interpretation (test Abnormal code = 09517-3) [facility] HospitalCB with [id number] 08:13:01 Test Item Value Reference Range Interpretation Comments WBC (test code = See_Comment [Automated 6690-2) message] The sy stem which generated this result transmitted reference range : 4.20 - 10.70 10*3/?L. The reference range was not used to interpret this result as normal/abnormal . RBC (test code = See_Comment L [Automated 789-8) message] The sy stem which generated this result transmitted reference range : 4.26 - 5.52 10*6/?L. The reference range was not used to interpret this result as normal/abnormal . HGB (test code = 9.7 g/dL 12.2-16.4 L 718-7) HCT (test code = 30.2 % 38.4-49.3 L 4544-3) MCV (test code = 80.5 fL 81.7-95.6 L 787-2) MCH (test code = 25.9 pg 26.1-32.7 L 785-6) MCHC (test code = 32.1 g/dL 31.2-35.0 786-4) RDW-SD (test code = 57.3 fL 38.5-51.6 H 26287-9) RDW-CV (test code = 19.9 % 12.1-15.4 H 788-0) PLT (test code = See_Comment L [Automated 777-3) message] The sy stem which generated this result transmitted reference range : 150 - 328 10*3/ ?L. The reference r yovani was not used to interpret this result as normal/abnormal . MPV (test code = 11.8 fL 9.8-13.0 09191-8) IPF % (test code = 2.7 % 1.2-10.7 Platelet count 8511766344) measured by fluorescence method. NRBC/100 WBC (test See_Comment [Automat ed code = 4292747960) message] The system which generated this result transmitted reference range : 0.0 - 10.0 /100 WBCs. The refer ence range was not u sed to interpret th is result as normal/abnormal . NRBC x10^3 (test code <0.01 See_Comment [Auto mated = 1651648236) message] The s ystem which generated this result transmitted reference range : 10*3/?L. The reference range was not used to interpret this result as normal/abnormal . GRAN MAT (NEUT) % 62.3 % (test code = 770-8) IMM GRAN % (test code 0.20 % = 3416902974) LYMPH % (test code = 24.8 % 736-9) MONO % (test code = 9.3 % 5905-5) EOS % (test code = 3.0 % 713-8) BASO % (test code = 0.4 % 706-2) GRAN MAT x10^3(ANC) 3.55 10*3/uL 1.99-6.95 (test code = 8106459203) IMM GRAN x10^3 (test <0.03 0.00-0.06 code = 9816627244) LYMPH x10^3 (test code 1.41 10*3/uL 1.09-3.23 = 731-0) MONO x10^3 (test code 0.53 10*3/uL 0.36-1.02 = 742-7) EOS x10^3 (test code = 0.17 10*3/uL 0.06-0.53 711-2) BASO x10^3 (test code <0.03 0.01-0.09 = 704-7) ACANTHOCYTES (test 1+ See_Comment [Automat ed code = 7789-1) message] The system which generated this result transmitted reference range : 1+. The referen ce range was not u sed to interpret th is result as normal/abnormal . POLYCHROMASIA (test 2+ See_Comment [Automa liborio code = 15918-7) message] The system which generated this result transmitted reference range : 2+. The referen ce range was not u sed to interpret th is result as normal/abnormal . Lab Interpretation Abnormal (test code = 77601-2) [facility] Metabolic Panel (NA, K, CL, CO2, GLUCOSE, BUN, CREATININE, CA)2021-04-09 07:45:28 Test Item Value Reference Range Interpretation Comments NA (test code = 138 mmol/L 135-145 5548978246) K (test code = 3.6 mmol/L 3.5-5.0 1021362763) CL (test code = 111 mmol/L 98-108 H 0873636075) CO2 TOTAL (test code = 21 mmol/L 23-31 L 5481837364) AGAP (test code = 2-16 9701095422) BUN (test code = 23 mg/dL 7-23 1784356703) GLUCOSE (test code = 169 mg/dL 70-110 H 7810058059) CREATININE (test code = 1.09 mg/dL 0.60-1.25 2204135484) CALCIUM (test code = 7.3 mg/dL 8.6-10.6 L 5976145584) eGFR (test code = mL/min/1.73m2 8040220853) MEGHANN (test code = MEGHANN) Association of Glomerular Filtration Rate (GFR) and Staging of Kidney Disease* + --+ --+ ------+| GFR (mL/min/1.73 m2) ?| With Kidney Damage ?| ?Without Kidney Damage+ --------+ --------+ +| ?>90 ?| ?Stage one ?| ? Normal ?+ ---+ ---+ -------+| ?60-89 ?| ?Stage two ?| ? Decreased GFR ? + --+ --+ ------+| ?30-59 ?| ?Stage three ?| ? Stage three ? + --+ --+ ------+| ?15-29 ?| ?Stage four ? | ? Stage four ?+ ---+ ---+ -------+| ?<15 (or dialysis) ? ?| ?Stage five ? | ? Stage five ?+ ---+ ---+ -------+ *Each stage assumes the associated GFR level has been in effect for at least three months. ?Stages 1 to 5, with or without kidney disease, indicate chronic kidney disease. Notes: Determination of stages one and two (with eGFR >59mL/min/1.73 m2) requires estimation of kidney damage for at least three months as defined by structural or functional abnormalities of the kidney, manifested by either:Pathological abnormalities or Markers of kidney damage (including abnormalities in the composition of the blood or urine or abnormalities in imaging tests). Lab Interpretation Abnormal (test code = 28389-8) [facility] HospitalMAGNESIUM2022-02-27 07:45:28 Test Item Value Reference Range Interpretation Comments MAGNESIUM (test code = 6579276064) 1.7 mg/dL 1.7-2.4 Lab Interpretation (test code = Normal 02129-8) [facility] HospitalHEPATIC FUNCTION PANEL (58009) (ALB,T.PRO,BILI T,BU/BC,ALT,AST,ALK PHOS)2021-04-09 07:45:28 Test Item Value Reference Range Interpretation Comments TOTAL BILI (test code = 0338543759) 0.9 mg/dL 0.1-1.1 BILI UNCON (test code = 0241203425) 0.3 mg/dL 0.1-1.1 BILI CONJ (test code = 3718512469) 0.0 mg/dL 0.0-0.3 T PROTEIN (test code = 5523155023) 4.9 g/dL 6.3-8.2 L ALBUMIN (test code = 3635724537) 2.7 g/dL 3.5-5.0 L ALK PHOS (test code = 9199557543) 93 U/L 34-122 ALTv (test code = 1742-6) 66 U/L 5-50 H AST(SGOT) (test code = 3469450185) 83 U/L 13-40 H Lab Interpretation (test code = Abnormal 66126-7) [facility] (for use with Heparin Infusion)2021-04-09 05:28:19 Test Item Value Reference Range Interpretation Comments APTT Patient (test code See_Comment H [Au tomated message] = 3173-2) The system [place] DEPT. generated this result transmitted ref erence range: 26 - 36 Seconds. The reference range was not used to int erpret this result as normal/abnormal . Lab Interpretation (test Abnormal code = 56796-4) [facility] HospitalHeparin Anti-Xa, Unfractionated Heparin 2021-04-08 20:24:59 Test Item Value Reference Range Interpretation Comments Anti-Xa UFH (test code = See_Comment H [A utomated message] 3274-8) The system [place] DEPT. generated this result transmitted ref erence range: 0.30 - 0 .70 IU/mL. The refe rence range was not u sed to interpret this result as normal/abnor mal. Lab Interpretation (test Abnormal code = 89545-6) [facility]2021-[facility]-08 20:21:39 Test Item Value Reference Range Interpretation Comments APTT Patient (test code See_Comment HH [Au tomated message] = 3173-2) The system [place] DEPT. generated this result transmitted ref erence range: 26 - 36 Seconds. The reference range was not used to int erpret this result as normal/abnormal . Lab Interpretation (test Abnormal code = 43380-4) [facility] (NA, K, CL, CO2, GLUCOSE, BUN, CREATININE, CA)2021-04-08 13:48:35 Test Item Value Reference Range Interpretation Comments NA (test code = 139 mmol/L 135-145 2273349954) K (test code = 4.4 mmol/L 3.5-5.0 0931893277) CL (test code = 109 mmol/L 98-108 H 5038968666) CO2 TOTAL (test code = 23 mmol/L 23-31 0071205758) AGAP (test code = 2-16 8258533482) BUN (test code = 25 mg/dL 7-23 H 5590628145) GLUCOSE (test code = 177 mg/dL 70-110 H 3919911630) CREATININE (test code = 1.11 mg/dL 0.60-1.25 4164101056) CALCIUM (test code = 8.4 mg/dL 8.6-10.6 L 2332663528) eGFR (test code = mL/min/1.73m2 3861849245) MEGHANN (test code = MEGHANN) Association of Glomerular Filtration Rate (GFR) and Staging of Kidney Disease* + --+ --+ ------+| GFR (mL/min/1.73 m2) ?| With Kidney Damage ?| ?Without Kidney Damage+ --------+ --------+ +| ?>90 ?| ?Stage one ?| ? Normal ?+ ---+ ---+ -------+| ?60-89 ?| ?Stage two ?| ? Decreased GFR ? + --+ --+ ------+| ?30-59 ?| ?Stage three ?| ? Stage three ? + --+ --+ ------+| ?15-29 ?| ?Stage four ? | ? Stage four ?+ ---+ ---+ -------+| ?<15 (or dialysis) ? ?| ?Stage five ? | ? Stage five ?+ ---+ ---+ -------+ *Each stage assumes the associated GFR level has been in effect for at least three months. ?Stages 1 to 5, with or without kidney disease, indicate chronic kidney disease. Notes: Determination of stages one and two (with eGFR >59mL/min/1.73 m2) requires estimation of kidney damage for at least three months as defined by structural or functional abnormalities of the kidney, manifested by either:Pathological abnormalities or Markers of kidney damage (including abnormalities in the composition of the blood or urine or abnormalities in imaging tests). Lab Interpretation Abnormal (test code = 37824-9) [facility] (85227[facility] (ALB,T.PRO,BILI T,BU/BC,ALT,AST,ALK PHOS)2021-04-08 13:48:35 Test Item Value Reference Range Interpretation Comments TOTAL BILI (test code = 3106404167) 1.0 mg/dL 0.1-1.1 BILI UNCON (test code = 5384481925) 0.6 mg/dL 0.1-1.1 BILI CONJ (test code = 0358156567) 0.0 mg/dL 0.0-0.3 T PROTEIN (test code = 4263170568) 5.7 g/dL 6.3-8.2 L ALBUMIN (test code = 2775065281) 3.4 g/dL 3.5-5.0 L ALK PHOS (test code = 5800848171) 122 U/L 34-122 ALTv (test code = 1742-6) 73 U/L 5-50 H AST(SGOT) (test code = 2874580347) 106 U/L 13-40 H Lab Interpretation (test code = Abnormal 73705-6) [facility] HospitalMagnesium [id number] 13:48:35 Test Item Value Reference Range Interpretation Comments MAGNESIUM (test code = 0484693356) 1.5 mg/dL 1.7-2.4 L Lab Interpretation (test code = Abnormal 12526-5) [facility] HospitalPhosphorus [id number] 13:48:35 Test Item Value Reference Range Interpretation Comments PHOSPHORUS (test code = 1269663364) 3.9 mg/dL 2.5-5.0 Lab Interpretation (test code = Normal 67961-1) [facility] HospitalProthrombin Time / [id number] 13:10:10 Test Item Value Reference Range Interpretation Comments PROTIME PATIENT (test See_Comment H [Auto mated message] code = 5964-2) The system ich generated this result transmitted ref erence range: 10.1 - 1 2.6 Seconds. The reference range was not used to int erpret this result as normal/abnormal . INR (test code = 6301-6) Nor mal INR <1.1; Warfarin Therap eutic range 2.0 to 3. 0 or 2.5 to 3.5, dep ending upon the indica tions. Lab Interpretation (test Abnormal code = 30634-3) [facility]2022-[facility]-26 13:10:10 Test Item Value Reference Range Interpretation Comments APTT Patient (test code = See_Comment [ Automated message] 3173-2) The system [employer] h generated this result transmitted ref erence range: 26 - 36 Seconds. The re ference range was not u sed to interpret this result as normal/abnor mal. Lab Interpretation (test Normal code = 02961-0) [facility] HospitalCB WITH [id number] 12:58:52 Test Item Value Reference Range Interpretation Comments WBC (test code = See_Comment [Automated 1715-2) message] The sy stem which generated this result transmitted reference range : 4.20 - 10.70 10*3/?L. The reference range was not used to interpret this result as normal/abnormal . RBC (test code = See_Comment [Automated 789-8) message] The sy stem which generated this result transmitted reference range : 4.26 - 5.52 10*6/?L. The reference range was not used to interpret this result as normal/abnormal . HGB (test code = 11.1 g/dL 12.2-16.4 L 718-7) HCT (test code = 35.4 % 38.4-49.3 L 4544-3) MCV (test code = 81.9 fL 81.7-95.6 787-2) MCH (test code = 25.7 pg 26.1-32.7 L 785-6) MCHC (test code = 31.4 g/dL 31.2-35.0 786-4) RDW-SD (test code = 58.4 fL 38.5-51.6 H 70659-5) RDW-CV (test code = 20.3 % 12.1-15.4 H 788-0) PLT (test code = See_Comment L [Automated 777-3) message] The sy stem which generated this result transmitted reference range : 150 - 328 10*3/ ?L. The reference r yovani was not used to interpret this result as normal/abnormal . MPV (test code = 12.0 fL 9.8-13.0 70001-8) NRBC/100 WBC (test See_Comment [Automat ed code = 1684210045) message] The system which generated this result transmitted reference range : 0.0 - 10.0 /100 WBCs. The refer ence range was not u sed to interpret th is result as normal/abnormal . NRBC x10^3 (test code See_Comment [Auto mated = 8211730710) message] The s ystem which generated this result transmitted reference range : 10*3/?L. The reference range was not used to interpret this result as normal/abnormal . GRAN MAT (NEUT) % 70.3 % (test code = 770-8) IMM GRAN % (test code 0.50 % = 0342523221) LYMPH % (test code = 17.3 % 736-9) MONO % (test code = 11.2 % 5905-5) EOS % (test code = 0.3 % 713-8) BASO % (test code = 0.4 % 706-2) GRAN MAT x10^3(ANC) 5.32 10*3/uL 1.99-6.95 (test code = 6835415339) IMM GRAN x10^3 (test 0.04 10*3/uL 0.00-0.06 code = 2737871118) LYMPH x10^3 (test code 1.31 10*3/uL 1.09-3.23 = 731-0) MONO x10^3 (test code 0.85 10*3/uL 0.36-1.02 = 742-7) EOS x10^3 (test code = <0.03 0.06-0.53 L 711-2) BASO x10^3 (test code 0.03 10*3/uL 0.01-0.09 = 704-7) Lab Interpretation Abnormal (test code = 15673-0) [facility] HospitalLactic Acid Whole [id number] 10:49:13 Test Item Value Reference Range Interpretation Comments LACTIC ACID (test code = 2.02 mmol/L 0.50-2.20 QUE S 9908887187) Lab Interpretation (test code = Normal 82666-4) [facility] HospitalTROPONIN [id number] 05:02:32 Test Item Value Reference Interpretation Comments Range TROPONIN I (test <0.012 See_Comment [Automated code = 7620058246) message] The system which generated this result transmitted reference range : <=0.034 ng/mL. The reference range was not used to interpret this result as normal/abnormal . MEGHANN (test code = Reference (Normal) MEGHANN) Range (defined by the 99th percentile reference limit): <= 0.034 ng/mL Note: Cardiac troponin begins to rise 3-4 hours after the onset of ischemia. Repeat in 4-6 hours if the sample was drawn within 3-4 hours of the onset of the symptom and found normal. Diagnosis of myocardial injury is made with acute changes in cTn concentrations with at least one serial sample above the 99th percentile upper reference limit (URL), taken together with the patient's clinical presentation. Biotin has been reported to cause a negative bias, interpret results relative to patient's use of biotin. Lab Interpretation Normal (test code = 21196-1) [facility] HospitalN-TERMINAL [id number] 04:59:36 Test Item Value Reference Range Interpretation Comments NT-proBNP (test code 7010 pg/mL See_Comment H [Autom ated = 2725320337) message] The system which generated this result transmitted reference range : <=450. The reference range was not used to interpret this result as normal/abnormal . MEGHANN (test code = MEGHANN) Biotin has been reported to cause a negative bias, interpret results relative to patient's use of biotin. Lab Interpretation Abnormal (test code = 33014-5) [facility] METABOLIC PANEL (12156)2021-04-08 01:39:51 Test Item Value Reference Range Interpretation Comments NA (test code = 139 mmol/L 135-145 9569507313) K (test code = 4.7 mmol/L 3.5-5.0 1382019702) CL (test code = 102 mmol/L 98-108 2032030798) CO2 TOTAL (test code = 23 mmol/L 23-31 1676383766) AGAP (test code = 2-16 2690114238) BUN (test code = 28 mg/dL 7-23 H 9158150364) GLUCOSE (test code = 155 mg/dL 70-110 H 4864598483) CREATININE (test code = 1.41 mg/dL 0.60-1.25 H 6926336043) TOTAL BILI (test code = 1.0 mg/dL 0.1-1.9 0596121835) CALCIUM (test code = 8.8 mg/dL 8.6-10.6 2188597829) T PROTEIN (test code = 6.2 g/dL 6.3-8.2 L 4752706117) ALBUMIN (test code = 4.0 g/dL 3.5-5.0 5991089316) ALK PHOS (test code = 122 U/L 34-122 4912272304) ALTv (test code = 40 U/L 5-50 1742-6) AST(SGOT) (test code = 71 U/L 13-40 H 5842845993) eGFR (test code = mL/min/1.73m2 7048200822) MEGHANN (test code = MEGHANN) Association of Glomerular Filtration Rate (GFR) and Staging of Kidney Disease* + --+ --+ ------+| GFR (mL/min/1.73 m2) ?| With Kidney Damage ?| ?Without Kidney Damage+ --------+ --------+ +| ?>90 ?| ?Stage one ?| ? Normal ?+ ---+ ---+ -------+| ?60-89 ?| ?Stage two ?| ? Decreased GFR ? + --+ --+ ------+| ?30-59 ?| ?Stage three ?| ? Stage three ? + --+ --+ ------+| ?15-29 ?| ?Stage four ? | ? Stage four ?+ ---+ ---+ -------+| ?<15 (or dialysis) ? ?| ?Stage five ? | ? Stage five ?+ ---+ ---+ -------+ *Each stage assumes the associated GFR level has been in effect for at least three months. ?Stages 1 to 5, with or without kidney disease, indicate chronic kidney disease. Notes: Determination of stages one and two (with eGFR >59mL/min/1.73 m2) requires estimation of kidney damage for at least three months as defined by structural or functional abnormalities of the kidney, manifested by either:Pathological abnormalities or Markers of kidney damage (including abnormalities in the composition of the blood or urine or abnormalities in imaging tests). Lab Interpretation Abnormal (test code = 19806-7) [facility] HospitalLIPASE2022-[facility]-26 01:39:30 Test Item Value Reference Range Interpretation Comments LIPASE (test code = 7282479609) 75 U/L 0-220 Lab Interpretation (test code = Normal 77506-4) [facility] HospitalACTIVATED PARTIAL THRMPLAS [id number] 01:36:53 Test Item Value Reference Range Interpretation Comments APTT Patient (test See_Comment [Automat ed code = 3173-2) message] The system which generated this result transmitted reference range : 23 - 38 Seconds . The reference range was not used to interpr et this result as normal/abnormal . MEGHANN (test code = MEGHANN) The [facility] patient population mean normal value for aPTT is 30 seconds. Lab Interpretation Normal (test code = 86503-7) [facility] HospitalPROTHROMBIN TIME / [id number] 01:34:51 Test Item Value Reference Range Interpretation Comments PROTIME PATIENT (test See_Comment H [Auto mated message] code = 5964-2) The system wh ich generated this result transmitted ref erence range: 12.0 - 1 4.7 Seconds. The reference range was not used to int erpret this result as normal/abnormal . INR (test code = 6301-6) Nor mal INR <1.1; Warfarin Therap eutic range 2.0 to 3. 0 or 2.5 to 3.5, dep ending upon the indica tions. Lab Interpretation (test Abnormal code = 66106-3) [facility] WITH [id number] 01:27:31 Test Item Value Reference Range Interpretation Comments WBC (test code = See_Comment [Automated 2790-2) message] The sy stem which generated this result transmitted reference range : 4.20 - 10.70 10*3/?L. The reference range was not used to interpret this result as normal/abnormal . RBC (test code = See_Comment [Automated 789-8) message] The sy stem which generated this result transmitted reference range : 4.26 - 5.52 10*6/?L. The reference range was not used to interpret this result as normal/abnormal . HGB (test code = 12.3 g/dL 12.2-16.4 718-7) HCT (test code = 40.1 % 38.4-49.3 4544-3) MCV (test code = 84.4 fL 81.7-95.6 787-2) MCH (test code = 25.9 pg 26.1-32.7 L 785-6) MCHC (test code = 30.7 g/dL 31.2-35.0 L 786-4) RDW-SD (test code = 61.3 fL 38.5-51.6 H 40287-8) RDW-CV (test code = 20.8 % 12.1-15.4 H 788-0) PLT (test code = See_Comment [Automated 777-3) message] The sy stem which generated this result transmitted reference range : 150 - 328 10*3/ ?L. The reference r yovani was not used to interpret this result as normal/abnormal . MPV (test code = 12.3 fL 9.8-13.0 17604-2) NRBC/100 WBC (test See_Comment [Automat ed code = 1628587394) message] The system which generated this result transmitted reference range : 0.0 - 10.0 /100 WBCs. The refer ence range was not u sed to interpret th is result as normal/abnormal . NRBC x10^3 (test code <0.01 See_Comment [Auto mated = 5153589760) message] The s ystem which generated this result transmitted reference range : 10*3/?L. The reference range was not used to interpret this result as normal/abnormal . GRAN MAT (NEUT) % 58.9 % (test code = 770-8) IMM GRAN % (test code 0.30 % = 4410172489) LYMPH % (test code = 27.5 % 736-9) MONO % (test code = 11.2 % 5905-5) EOS % (test code = 1.5 % 713-8) BASO % (test code = 0.6 % 706-2) GRAN MAT x10^3(ANC) 5.08 10*3/uL 1.99-6.95 (test code = 9859332930) IMM GRAN x10^3 (test 0.03 10*3/uL 0.00-0.06 code = 7142337401) LYMPH x10^3 (test code 2.37 10*3/uL 1.09-3.23 = 731-0) MONO x10^3 (test code 0.97 10*3/uL 0.36-1.02 = 742-7) EOS x10^3 (test code = 0.13 10*3/uL 0.06-0.53 711-2) BASO x10^3 (test code 0.05 10*3/uL 0.01-0.09 = 704-7) Lab Interpretation Abnormal (test code = 69937-1) [facility]"
--- NOTE | 2021-04-26 15:44 | ER ---
Nurse's Notes [facility] Name: Santiago Barney Age: 76 yrs Sex: Male : 1945 Arrival Date: 04/26/2021 Time: 14:49 Bed 23 Private MD: Niya Sarabia Diagnosis: Constipation, unspecified;Lower abdominal pain, unspecified;Elevated blood-pressure reading, without diagnosis of hypertension Presentation: 04/26 14:58 Chief complaint: Patient states: "I am constipated for 2 days. I want to the pharmacy jd3 and was given a suppository and was told if it doesn't work in an hour to come to the ER.". Coronavirus screen: At this time, the client does not indicate any symptoms associated with coronavirus-19. Ebola Screen: No symptoms or risks identified at this time. Initial Sepsis Screen: Does the patient meet any 2 criteria? No. Patient's initial sepsis screen is negative. Does the patient have a suspected source of infection? No. Patient's initial sepsis screen is negative. Risk Assessment: Do you want to hurt yourself or someone else? Patient reports no desire to harm self or others. Onset of symptoms was April 24, 2021. 14:58 Method Of Arrival: Ambulatory jd3 14:58 Acuity: BOB 4 jd3 Historical: - Allergies: 16:13 No Known Allergies; ss7 - Immunization history:: Adult Immunizations unknown. - Social history:: Smoking status: unknown. Screenin:01 Abuse screen: Denies threats or abuse. Nutritional screening: No deficits noted. ss7 Tuberculosis screening: No symptoms or risk factors identified. Fall Risk None identified. Assessment: 15:01 General: Appears in no apparent distress. uncomfortable, Behavior is calm, cooperative, ss7 appropriate for age. Pain: Denies pain. Neuro: No deficits noted. Cardiovascular: Heart tones S1 S2. Respiratory: Breath sounds are clear bilaterally. GI: Bowel sounds present X 4 quads. Abd is soft and non tender Reports constipation. : No deficits noted. EENT: No deficits noted. Derm: No deficits noted. Musculoskeletal: No deficits noted. 15:32 Reassessment: Pt able to tolerate Soap Suds Enema. + production of bowel movement has ss7 began. . Vital Signs: 14:59 BP 143 / 82; Pulse 105; Resp 18 S; Temp 97.7(O); Pulse Ox 100% on R/A; Weight 79.83 kg jd3 (R); Height 6 ft. 0 in. (182.88 cm) (R); Pain 5/10; 14:59 Body Mass Index 23.87 (79.83 kg, 182.88 cm) jd3 ED Course: 14:49 Patient arrived in ED. mr 14:49 Niya Sarabia is Private Physician. mr 14:51 Capo Barnard DO is Attending Physician. ms3 14:59 Triage completed. jd3 15:00 Marina Ovalles, RN is Primary Nurse. ss7 15:00 Arm band placed on. jd3 15:01 Patient has correct armband on for positive identification. ss7 15:01 No provider procedures requiring assistance completed. Inserted Patient did not have IV ss7 access during this emergency room visit. 15:43 Niya Sarabia is Referral Physician. ms3 Administered Medications: 15:10 Drug: soap suds enema 1 kit Route: ND; ss7 15:50 Follow up: Response: Other ss7 Outcome: 15:44 Discharge ordered by . ms3 15:50 Discharged to home ambulatory. ss7 15:50 Condition: good 15:50 Discharge instructions given to patient, Instructed on discharge instructions, Demonstrated understanding of instructions. 16:14 Patient left the ED. ss7 Signatures: Eleanor Merrill mr MunsonJatin RN RN jCapo Parham DO DO ms3 Marina Ovalles, BRITTNEE RN ss7
--- NOTE | 2021-04-26 15:44 | EDPHYS ---
Physician Documentation [facility] Name: Santiago Barney Age: 76 yrs Sex: Male : 1945 Arrival Date: 04/26/2021 Time: 14:49 Bed 23 Private MD: Niya Sarabia ED Physician Capo Barnard HPI: 04/26 14:58 This 76 yrs old Male presents to ER via Unassigned with complaints of Constipation. ms3 14:58 The patient presents with abdominal pain in the lower abdomen. Onset: The ms3 symptoms/episode began/occurred 2 day(s) ago. The symptoms do not radiate. Associated signs and symptoms: Pertinent positives: constipation. The symptoms are described as Fullness. Modifying factors: The symptoms are alleviated by nothing, the symptoms are aggravated by nothing. Severity of pain: At its worst the pain was moderate in the emergency department the pain is unchanged. 76-year-old male with past medical history of bipolar, diabetes, fatty liver, coronary artery disease presents for constipation has been ongoing for 2 days. Patient states he spoke to the pharmacist and took a suppository and MiraLAX without relief. Patient states he is currently having 3/10 lower abdominal fullness. Patient denies alleviating or inciting factors.. Historical: - Allergies: 16:13 No Known Allergies; ss7 - Immunization history:: Adult Immunizations unknown. - Social history:: Smoking status: unknown. ROS: 14:58 Constitutional: Negative for fever, and chills. Neck: Negative for injury, pain, and ms3 swelling, Cardiovascular: Negative for chest pain, and palpitations. Respiratory: Negative for shortness of breath, cough, wheezing, and pleuritic chest pain, MS/Extremity: Negative for injury and deformity, Skin: Negative for injury, rash, and discoloration, Neuro: Negative for headache, weakness, numbness, tingling. Psych: Negative for depression, anxiety, suicide ideation, homicidal ideation, and hallucinations. 14:58 Abdomen/GI: Positive for constipation. Exam: 14:58 Constitutional: This is a well developed, well nourished patient who is awake, alert, ms3 and in no acute distress. Neck: Trachea midline, no cervical lymphadenopathy. Supple, full range of motion without nuchal rigidity, or vertebral point tenderness. No Meningismus. Chest/axilla: Normal chest wall appearance and motion. Nontender with no deformity. Cardiovascular: Regular rate and rhythm with a normal S1 and S2. No gallops, murmurs, or rubs. Normal PMI, no JVD. No pulse deficits. Respiratory: Lungs have equal breath sounds bilaterally, clear to auscultation and percussion. No rales, rhonchi or wheezes noted. No increased work of breathing, no retractions or nasal flaring. Skin: Warm, dry with normal turgor. Normal color with no rashes, no lesions, and no evidence of cellulitis. Psych: Awake, alert, with orientation to person, place and time. Behavior, mood, and affect are within normal limits. 14:58 Abdomen/GI: Inspection: abdomen appears normal, Bowel sounds: normal, Palpation: abdomen is soft and non-tender, in all quadrants. Vital Signs: 14:59 BP 143 / 82; Pulse 105; Resp 18 S; Temp 97.7(O); Pulse Ox 100% on R/A; Weight 79.83 kg jd3 (R); Height 6 ft. 0 in. (182.88 cm) (R); Pain 5/10; 14:59 Body Mass Index 23.87 (79.83 kg, 182.88 cm) jd3 MDM: 15:00 Patient medically screened. ms3 15:44 Differential diagnosis: bowel obstruction, Constipation vs non-specific abdominal pain. ms3 Data reviewed: vital signs, nurses notes. Counseling: I had a detailed discussion with the patient and/or guardian regarding: the historical points, exam findings, and any diagnostic results supporting the discharge/admit diagnosis, the need for outpatient follow up, to return to the emergency department if symptoms worsen or persist or if there are any questions or concerns that arise at home. ED course: Patient with large bowel movement after soapsuds enema improvement in patient's symptoms. Patient is currently alert oriented x4, in no apparent distress, nontoxic-appearing, ambulatory in the emergency department. Discussed with patient need to follow-up with primary care physician. Patient understands and agrees with plan. All questions were answered. Return precautions discussed include worsening symptoms, or any other concerns.. Administered Medications: 15:10 Drug: soap suds enema 1 kit Route: OH; ss7 15:50 Follow up: Response: Other ss7 Disposition Summary: 04/26/21 15:44 Discharge Ordered Location: Home ms3 Condition: Stable ms3 Diagnosis - Constipation, unspecified ms3 - Lower abdominal pain, unspecified ms3 - Elevated blood-pressure reading, without diagnosis of hypertension ms3 Followup: ms3 - With: Niya Sarabia - When: 2 - 3 days - Reason: Discharge Instructions: - Discharge Summary Sheet ms3 - Constipation, Adult ms3 Forms: - Medication Reconciliation Form ms3 - Thank You Letter ms3 - Antibiotic Education ms3 - Prescription Opioid Use ms3 Signatures: Capo Barnard DO DO ms3 Marina Ovalles, RN RN ss7
[2021-04-26 16:20] VITALS: BP 143/82; TEMP 97.7; O2SAT 100
== END 2021-04-26 16:14 | disposition home or self-care (01) ==
LOC: ER 14:44
DX: R10.30 Lower abdominal pain, unspecified (principal); K59.00 Constipation, unspecified; R03.0 Elevated blood-pressure reading, without diagnosis of hypertension
CPT/HCPCS: 99283

== ENCOUNTER 2021-04-28 00:46 | Emergency (ER) | payer OTHER ==
--- OUTSIDE RECORDS SUMMARY | 2021-04-28 00:52 | XMS REPORT | Continuity of Care Document ---
:1945 Author Organization [facility] t Address 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 Attending Clinician RANJIT Attending Clinician Unavailable [id number] Admitting Clinician Unavailable SHAUN COHEN Admitting Clinician Unavailable Shaun Cohen MD Admitting Clinician Payers Payer Name Policy Type Policy Number Effective Date Expiration Date S ource Problems Condition Condition Condition Status Onset Resolution Last Treating Co mments Source Name Details Category Date Date Treatment Clinician Date PONCHO (acute PONCHO (acute Disease Active U nivers kidney kidney 2-26 ity of injury) injury) 00:00: [place] [facility] Atrial Atrial Disease Active Univers fibrillati fibrillati 1-14 it y of on on 00:00: [place] [facility] Abdominal Abdominal Disease Active Uni vers pain pain 1-12 ity of 00:00: [place] [facility] Allergies, Adverse Reactions, Alerts Allergy [...] Quantity Comments Source Exposure to Not sure [facility] SARS-CoV-2 (event) Medica l Branch Tobacco use and 2021-02-22 2021-02-22 Never used [facility] exposure 00:00:00 00:00:00 Medical Branch Sex [birth year] [facility] 00:00:00 00:00:00 Medical Branch Smoking Status Start Date Stop Date Source Never smoker [facility] [place] Medications Ordered Filled Start Stop Current Ordering Indication Dosage Frequency Signature Comments Components Source Medication Medication Date Date Medication? Clinician (SIG) Name Name perflutren 2021- No [id number] 2mL 2 mL, IV Univers lipid -04-10 [...] mouth ity of mg tablet 18:27: every [place] [address] morning. Medical Branch QUEtiapine 0 Yes 25mg Take 25 mg U nivers 50 mg 2-28 by mouth ity of tablet 18:27: daily. [place] [address] Medical Branch dorzolamide Yes 4[drp] Place 4 U nivers HCl/timolol 2-28 Drops in ity of maleat 18:27: each eye. [place] (DORZOLAMID Medical E-TIMOLOL Branch OPHTHALMIC) amiodarone 0 Yes 200ug Take 200 Un tyshawn HCl 2-28 mcg by ity of (AMIODARONE 18:27: [place]AL[place] 42 bedtime. Medical Branch QUEtiapine Yes 25mg Take 25 mg U nivers 25 mg 2-28 by mouth ity of tablet 18:27: at [place] [address] bedtime. Medical Branch brimonidine Yes brimonidin Univers 0.2 % 2-28 e 0.2 % ity of ophthalmic 18:27: eye drops [place] solution 42 INSTILL 1 Medica l DROP INTO Branch RIGHT EYE TWICE A DAY esomeprazol Yes esomeprazo Univers e 40 mg 2-28 le ity of capsule 18:27: magnesium [place] [address] 40 mg Medical capsule,de Branch layed release metformin 0 Yes 1000mg Take 1,000 Univers ER 500 mg 2-28 mg by ity of 24 hr 18:27: mouth 2 [place] tablet 42 (two) Medical times Branch daily. lamoTRIgine 0 Yes 100mg Take 100 U nivers 25 mg 2-28 mg by ity of tablet 18:27: mouth [place] 42 daily. Medical Branch metoprolol Yes 50mg Take 50 mg U nivers tartrate 50 2-28 by mouth ity of mg tablet 18:27: every [place] [address] morning. Medical Branch QUEtiapine 0 Yes 25mg Take 25 mg U nivers 50 mg 2-28 by mouth ity of tablet 18:27: daily. [place] [address] Medical Branch dorzolamide Yes 4[drp] Place 4 U nivers HCl/timolol 2-28 Drops in ity of maleat 18:27: each eye. [place] (DORZOLAMID 42 Medical E-TIMOLOL Branch OPHTHALMIC) amiodarone Yes 200ug Take 200 Un tyshawn HCl 2-28 mcg by ity of (AMIODARONE 18:27: [place]AL[place] 42 bedtime. Medical Branch QUEtiapine Yes 25mg Take 25 mg U nivers 25 mg 28 by mouth ity of tablet 18:27: at [place] 42 bedtime. Medical Branch regadenoson 2021- No [id number] .4mg 0.4 mg, Univers (LEXISCAN) 04-10 Slow IV ity o f injection 16:15: 15:40 Push, [place] 0.4 mg 00 :00 ONCE, 1 Medical dose, On [facility] 04/10/21 at 1015, Routine
history faculty member approving Restricted medication : TALHA HERNANDEZ tc 2021- No [id number] 43mCi 43 Univer s 99m-tetrofo 04-10 millicurie i ty of smin 15:45: 15:37 , [place] (MYOVIEW) 00 :00 Intravenou Medi ben injection s, ONCE, 1 Bran ch 43 dose, On [facility] 04/10/21 at 0945, Routine KCL 20 2021- No 20meq 20 mEq, Univer s mEq/15 mL 04-10 Oral, ity of solution 20 15:00: 18:41 ONCE, 1 [place] mEq 00 :00 dose, On Medical [facility] 04/10/21 at 0900, Routine magnesium 2021- No 2g 2 g, IV Univ ers sulfate in 04-10 Piggyback, it y of water 2 14:45: 18:41 ONCE, 1 [place] gram/50 mL 00 :00 dose, On Medic al (4 %) [facility] infusion 04/10/21 at g 0845, Routine tc 2021- No [id number] 16.9mCi 16.9 Univ ers 99m-tetrofo 04-10 millicurie i ty of smin 14:10: 14:10 , [place] (MYOVIEW) 00 :00 Intravenou Medi ben injection s, ONCE, 1 Bran ch 16.9 dose, On [facility] 04/10/21 at 0830, Routine HYDROcodone 2021- No 1{tbl} 1 tablet, Univers -acetaminop 04-10 Oral, ity of hen (NORCO 12:30: 11:23 ONCE, 1 [place] as 5) 5-325 mg 00 :00 dose, On Medi ben tablet 1 Mon Branch tablet 04/10/21 at 0630, Routine furosemide Yes [id number] 40mg Take 0.5 Univers 80 mg 04-10 [id number] tablets by ity of tablet 00:00: mouth [place] 00 every Medical morning Branch and evening. furosemide Yes [id number] 40mg Take 0.5 Univers 80 mg 04-10 [id number] tablets by ity of tablet 00:00: mouth [place] 00 every Medical morning Branch and evening. ferrous 2021- Yes [id number] 324mg Take 1 U nivers sulfate 324 04-10 tablet by it y of mg (65 mg 00:00: 04:59 mouth [place] iron) EC 00 :00 every Medical tablet Saturday, Branch Saturday and Saturday for 60 days. ferrous 2021- Yes [id number] 324mg Take 1 U nivers sulfate 324 04-10 tablet by it y of mg (65 mg 00:00: 04:59 mouth [place] iron) EC 00 :00 every Medical tablet Saturday, Branch Saturday and Saturday for 60 days. furosemide 2021- No [id number] 80mg Take 1 Univers 80 mg 04-10 [id number] tablet by ity of tablet 00:00: 00:00 [...] dose, On Medic al (8 %) IV [facility] Piggyback 4 04/09/21 at g 0300, Routine potassium 2021- No 20meq 20 mEq, IV Univers chloride 20 04-09 Piggyback, i ty of mEq/100 mL 08:00: 13:50 Q2H, 2 [place] (KCL) 20 00 :00 doses, Medical mEq/100 mL First dose [facility] IVPB 20 on [place] mEq 04/09/21 at 0200, Last dose on [place] 04/09/21 at 0400, 100 mL melatonin Yes 6mg 6 mg, Univers (MELATIN) 04-09 Oral, QHS, ity of tablet 6 mg 03:00: First dose [place] 00 on [facility] 04/08/21 at Branch 2100, Until Discontinu ed, Routine atorvastati Yes 40mg 40 mg, Univ ers n (LIPITOR) 04-09 Oral, QHS, it y of tablet 40 03:00: First dose [place] mg 00 on [facility] 04/08/21 at Branch 2100, Until Discontinu ed, Routine amiodarone Yes 200mg 200 mg, Uni vers (PACERONE) 04-09 Oral, QHS, ity of tablet 200 03:00: First dose [place] mg 00 on [facility] 04/08/21 at Branch 2100, Until Discontinu ed lidocaine 2021- No 1{patch 1 Patch, Univers (LIDODERM) 04-08 } Topical, ity of 5 % (700 18:00: 05:45 Administer [place] mg/patch) 00 :00 over 12 Medical patch 1 Hours, Branch Patch ONCE, 1 dose, On [facility] 04/08/21 at 1200, KHADAR magnesium 0 2021- No 4g 4 g, IV Univ ers sulfate in 04-08 Piggyback, it y of water 4 15:30: 16:25 ONCE, 1 [place] gram/50 mL 00 :00 dose, On Medic al (8 %) IV [facility] Branch Piggyback 4 04/08/21 at g 0930, [...] [place] mg 00 First dose Medical on [facility] Branch 04/08/21 at 0900, Until Discontinu ed, Routine pantoprazol Yes 40mg 40 mg, Univ ers e 04-08 Oral, ity of (PROTONIX) 15:00: DAILY, [place] EC tablet 00 First dose Medi ben 40 mg on [facility] Branch 04/08/21 at 0900, Until Discontinu ed, Routine aspirin Yes 81mg 81 mg, Univers chewable 04-08 Oral, ity of tablet 81 15:00: DAILY, [place] mg 00 First dose Medical on [facility] Branch 04/08/21 at 0900, Until Discontinu ed, Routine QUEtiapine Yes 25mg 25 mg, Unive rs (SEROQUEL) 04-08 Oral, BID, ity of tablet 25 14:00: First dose [place] mg 00 on [facility] Medical 04/08/21 at Branch 0800, Until Discontinu ed, Routine dorzolamide Yes 1[drp] 1 Drop, U nivers -timoloL 04-08 Both Eyes, ity o f (COSOPT) 14:00: BID, First [place] as 22.3-6.8 00 dose on Medical mg/mL [facility] Branch ophthalmic 04/08/21 at drops 1 0800, [...] Rang e, Dosing and Testing: &nbs p;FOR [facility] ONLY - aPTT < 35: & nbsp;Bolus [...] 04-08 Oral, ity of (TYLENOL) 11:36: Q6HPRN, [place] tablet 650 25 Starting Medic al mg on Sat Branch 04/08/21 at 0536, Until Discontinu ed, Routine, Pain (scale 1-3) alum-mag 2021- No 30mL 30 mL, Univer s hydroxide-s 04-08 Oral, ONCE i ty of imeth 09:00: 09:09 NOW, 1 [place] (MAALOX 00 :00 dose, On Medical PLUS [...] 04/07/21 at 2030, STAT iohexol 2021- No [id number] 120mL 120 mL, Univers (OMNIPAQUE 04-08 Intravenou it y of 350 02:00: 01:54 s, ONCE, 1 [place] BULK-100 00 :00 dose, On Medical mL) Fri Branch injection 04/07/21 at 120 mL 2000, Routine morpHINE 2021- No 4mg 4 mg, Slow Un tyshawn injection 4 04-08 IV Push, ity of mg 02:00: 01:06 ONCE, 1 [place] 00 :00 dose, On Medical Fri Branch 04/07/21 at 2000, STAT traZODone Yes [id number] 100mg Take 1 Univers 100 mg 2-11 tablet by ity of tablet 00:00: mouth at [place] 00 bedtime. Medical Branch traZODone 2021- No [id number] 100mg Take 1 Univers 100 mg 2-11 04-08 tablet by ity of tablet 00:00: 00:00 mouth at [place] 00 :00 bedtime. Medical Branch cyanocobala 2021- No [id number] 2000ug Univers min 03-01 ity of (VITAMIN 22:45: 21:36 [place] B12) 00 :00 Medical injection Branch 2,000 mcg cyanocobala 2021- No [id number] 2000ug 2,000 mcg, Univers min 03-01 Intramuscu ity of (VITAMIN 22:45: 21:36 [place], ONCE, [place] B12) 00 :00 1 dose, On Medical injection Wed Branch 2,000 mcg 03/01/21 at 1645, Routine traZODone 2021- No [id number] 100mg Take 1 Univers 100 mg 03-01 [...] 25 mg ity of tablet 06:40: tablet [facility] brimonidine Yes brimonidin Univers 0.2 % [...] 25 mg ity of tablet 06:40: tablet [facility] brimonidine Yes brimonidin Univers 0.2 % [...] 02 Medical Branch aspirin 81 0 Yes [id number] 81mg Take 1 Univers mg chewable 1-16 tablet by ity of tablet 00:00: mouth [place] 00 daily. Medical Branch lisinopriL 0 Yes [id number] 5mg Take 1 Univers 5 mg tablet 1-16 tablet by ity of 00:00: mouth [place] 00 daily. Medical Branch venlafaxine Yes [id number] 150mg Take 1 Univers XR 150 mg 1-16 capsule by ity of 24 hr 00:00: mouth [place] capsule 00 daily with Medica l breakfast. Branch clonazePAM 0 Yes [id number] .25mg Take 0.5 Univers 0.5 mg 1-16 tablets by ity of tablet 00:00: mouth [place] 00 daily. Medical Branch aspirin 81 0 Yes [id number] 81mg Take 1 Univers mg chewable 1-16 tablet by ity of tablet 00:00: mouth [place] 00 daily. Medical Branch lisinopriL 0 Yes [id number] 5mg Take 1 Univers 5 mg tablet 1-16 tablet by ity of 00:00: mouth [place] 00 daily. Medical Branch venlafaxine 0 Yes [id number] 150mg Take 1 Univers XR 150 mg 1-16 capsule by ity of 24 hr 00:00: mouth [place] capsule 00 daily with Medica l breakfast. Branch clonazePAM 0 Yes [id number] .25mg Take 0.5 Univers 0.5 mg 1-16 tablets by ity of tablet 00:00: mouth [place] 00 daily. Medical Branch aspirin 81 0 Yes [id number] 81mg Take 1 Univers mg chewable 1-16 tablet by ity of tablet 00:00: mouth [place] 00 daily. Medical Branch lisinopriL 0 Yes [id number] 5mg Take 1 Univers 5 mg tablet 1-16 tablet by ity of 00:00: mouth [place] 00 daily. Medical Branch venlafaxine Yes [id number] 150mg Take 1 Univers XR 150 mg 1-16 capsule by ity of 24 hr 00:00: mouth [place] capsule 00 daily with Medica l breakfast. Branch clonazePAM Yes [id number] .25mg Take 0.5 Univers 0.5 mg 1-16 tablets by ity of tablet 00:00: mouth [place] 00 daily. Medical Branch aspirin 81 Yes [id number] 81mg Take 1 Univers mg chewable 1-16 tablet by ity of tablet 00:00: mouth [place] 00 daily. Medical Branch lisinopriL Yes [id number] 5mg Take 1 Univers 5 mg tablet 1-16 tablet by ity of 00:00: mouth [place] 00 daily. Medical Branch aspirin 81 Yes [id number] 81mg Take 1 Univers mg chewable 1-16 tablet by ity of tablet 00:00: mouth [place] 00 daily. Medical Branch lisinopriL Yes [id number] 5mg Take 1 Univers 5 mg tablet 1-16 tablet by ity of 00:00: mouth [place] 00 daily. Medical Branch venlafaxine 2021- No [id number] 150mg Take 1 Univers XR 150 mg 1-16 -26 capsule by ity of 24 hr 00:00: 00:00 mouth [place] capsule 00 :00 daily with Medica l breakfast. Branch clonazePAM 2021- No [id number] .25mg Take 0.5 Univers 0.5 mg 1-16 -26 tablets by ity of tablet 00:00: 00:00 mouth [place] 00 :00 daily. Medical Branch atorvastati Yes [id number] 40mg Take 1 Univers n 40 mg 1-15 tablet by ity of tablet 00:00: mouth at [place] 00 bedtime. Medical Branch apixaban 5 Yes [id number] 5mg Take 1 Unive rs mg tablet 1-15 tablet by ity o f 00:00: mouth 2 [place] 00 (two) Medical times Branch daily. Indication s: atrial fibrillati on metoprolol Yes [id number] 50mg Take 1 Univers succinate 1-15 tablet by ity o f XL 50 mg 24 00:00: mouth 2 [place] hr tablet 00 (two) Medical times Branch daily. polyethylen Yes [id number] 17g Take 1 Univers e glycol 1-15 Packet by ity of 3350 17 00:00: mouth 2 [place] gram powder 00 (two) Medical times Branch daily. ramelteon 8 0 Yes [id number] 8mg Take 1 Univers mg tablet 1-15 tablet by ity o f 00:00: mouth at [place] 00 bedtime. Medical Branch atorvastati Yes [id number] 40mg Take 1 Univers n 40 mg 1-15 tablet by ity of tablet 00:00: mouth at [place] 00 bedtime. Medical Branch apixaban 5 Yes [id number] 5mg Take 1 Unive rs mg tablet 1-15 tablet by ity o f 00:00: mouth 2 [place] (two) Medical times Branch daily. Indication s: atrial fibrillati on metoprolol Yes [id number] 50mg Take 1 Univers succinate 1-15 tablet by ity o f XL 50 mg 24 00:00: mouth 2 [place] hr tablet 00 (two) Medical times Branch daily. polyethylen Yes [id number] 17g Take 1 Univers e glycol 1-15 Packet by ity of 3350 17 00:00: mouth 2 [place] gram powder 00 (two) Medical times Branch daily. ramelteon 8 Yes [id number] 8mg Take 1 Univers mg tablet 1-15 tablet by ity o f 00:00: mouth at [place] 00 bedtime. Medical Branch atorvastati Yes [id number] 40mg Take 1 Univers n 40 mg 1-15 tablet by ity of tablet 00:00: mouth at [place] 00 bedtime. Medical Branch apixaban 5 Yes 1358 5mg Take 1 Unive rs mg tablet 1-15 tablet by ity o f 00:00: mouth 2 [place] 00 (two) Medical times Branch daily. Indication s: atrial fibrillati on metoprolol 0 Yes [id number] 50mg Take 1 Univers succinate 1-15 tablet by ity o f XL 50 mg 24 00:00: mouth 2 [place] hr tablet 00 (two) Medical times Branch daily. polyethylen 0 Yes [id number] 17g Take 1 Univers e glycol 1-15 Packet by ity of 3350 17 00:00: mouth 2 [place] gram powder 00 (two) Medical times Branch daily. ramelteon 8 Yes [id number] 8mg Take 1 Univers mg tablet 1-15 tablet by ity o f 00:00: mouth at [place] 00 bedtime. Medical Branch atorvastati Yes [id number] 40mg Take 1 Univers n 40 mg 1-15 tablet by ity of tablet 00:00: mouth at [place] 00 bedtime. Medical Branch apixaban 5 Yes [id number] 5mg Take 1 Unive rs mg tablet 1-15 tablet by ity o f 00:00: mouth 2 [place] 00 (two) Medical times Branch daily. Indication s: atrial fibrillati on polyethylen Yes [id number] 17g Take 1 Univers e glycol 1-15 Packet by ity of 3350 17 00:00: mouth 2 [place] gram powder 00 (two) Medical times Branch daily. atorvastati Yes [id number] 40mg Take 1 Univers n 40 mg 1-15 tablet by ity of tablet 00:00: mouth at [place] 00 bedtime. Medical Branch apixaban 5 Yes [id number] 5mg Take 1 Unive rs mg tablet 1-15 tablet by ity o f 00:00: mouth 2 [place] 00 (two) Medical times Branch daily. Indication s: atrial fibrillati on polyethylen Yes [id number] 17g Take 1 Univers e glycol 1-15 Packet by ity of 3350 17 00:00: mouth 2 [place] gram powder 00 (two) Medical times Branch daily. metoprolol 2021- No [id number] 50mg Take 1 Univers succinate 1-15 -26 tablet by ity of XL 50 mg 24 00:00: 00:00 mouth 2 [place] hr tablet 00 :00 (two) Medical times Branch daily. ramelteon 8 2021- No [id number] 8mg Take 1 Univers mg tablet 1-15 02-26 tablet by ity of 00:00: 00:00 mouth at [place] 00 :00 bedtime. Medical Branch JARDIANCE 2020-02 Yes Univers 25 mg Tab 1-19 ity of 00:00: [place] 00 Medical Branch JARDIANCE 2020-02 Yes Univers 25 mg Tab 1-19 ity of 00:00: [place] 00 Medical Branch JARDIANCE 2020-02 Yes Univers 25 mg Tab 1-19 ity of 00:00: Medical Branch JARDIANCE 2020-02 Yes Univers 25 mg Tab 1-19 ity of 00:00: [place] [facility] JARDIANCE 2020-02 Yes Univers 25 mg Tab 1-19 ity of 00:00: [place] [facility] Immunizations Ordered Filled Immunization Date Status Comments [facility] e Immunization Name Name SARS-COV-2 COVID-19 2020-05-28 Completed Unive rsity of MODERNA VACCINE 00:00:00 [facility] Branch SARS-COV-2 COVID-19 2020-05-28 Completed Unive rsity of MODERNA VACCINE 00:00:00 [facility] Branch SARS-COV-2 COVID-19 2020-05-28 Completed Unive rsity of MODERNA VACCINE 00:00:00 [facility] Branch SARS-COV-2 COVID-19 2020-05-28 Completed Unive rsity of MODERNA VACCINE 00:00:00 [facility] Branch SARS-COV-2 COVID-19 2020-05-28 Completed Unive rsity of MODERNA VACCINE 00:00:00 [facility] Branch SARS-COV-2 COVID-19 2020-04-27 Completed Unive rsity of MODERNA VACCINE 00:00:00 [facility] Branch SARS-COV-2 COVID-19 2020-04-27 Completed Unive rsity of MODERNA VACCINE 00:00:00 [facility] Branch SARS-COV-2 COVID-19 2020-04-27 Completed Unive rsity of MODERNA VACCINE 00:00:00 [facility] Branch SARS-COV-2 COVID-19 2020-04-27 Completed Unive rsity of MODERNA VACCINE 00:00:00 [facility] Branch SARS-COV-2 COVID-19 2020-04-27 Completed Unive rsity of MODERNA VACCINE 00:00:00 [facility] Branch Pneumococcal 13 2014-10-11 Completed Universit y of Conjugate, PCV13 00:00:00 [facility] dical (Prevnar 13) Branch Pneumococcal 13 2014-10-11 Completed Universit y of Conjugate, PCV13 00:00:00 [facility] dical (Prevnar 13) Branch Pneumococcal 13 2014-10-11 Completed Universit y of Conjugate, PCV13 00:00:00 [facility] dical (Prevnar 13) Branch Pneumococcal 13 2014-10-11 Completed Universit y of Conjugate, PCV13 00:00:00 [facility] dical (Prevnar 13) Branch Pneumococcal 13 2014-10-11 Completed Universit y of Conjugate, PCV13 00:00:00 [facility] dical (Prevnar 13) Branch Zoster(Zostavax)( 2009-11-02 Completed Unive rsity of ingles) 00:00:00 [facility] Zoster(Zostavax)( 2009-11-02 Completed Unive rsity of ingles) 00:00:00 [facility] Zoster(Zostavax)( 2009-11-02 Completed Unive rsity of ingles) 00:00:00 [facility] Zoster(Zostavax)( 2009-11-02 Completed Unive rsity of ingles) 00:00:00 [facility] Zoster(Zostavax)( 2009-11-02 Completed Unive rsity of ingles) 00:00:00 [facility] Vital Signs Vital Name Observation Time Observation Value Comments Source Systolic blood 2021-04-10 21:57:00 130 mm[Hg] Univer sity of pressure [facility] Diastolic blood 2021-04-10 21:57:00 75 mm[Hg] Unive rsity of pressure [facility] Heart rate 2021-04-10 21:57:00 67 /min [facility] Body temperature 2021-04-10 21:57:00 35.78 Agatha [facility] Respiratory rate 2021-04-10 21:57:00 18 /[facility] O[facility] saturation in 2021-04-10 21:57:00 99 /min [facility] Arterial blood by [facility] Pulse oximetry Branch Body height 2021-04-10 18:43:00 182.9 cm [facility] Body weight 2021-04-10 18:43:00 88.451 kg [facility] BMI 2021-04-10 18:43:00 26.45 kg/m2 [facility] Systolic blood 2021-04-08 06:00:00 151 mm[Hg] Univer sity of pressure [facility] Diastolic blood 2021-04-08 06:00:00 98 mm[Hg] Unive rsity of pressure [facility] Heart rate 2021-04-08 06:00:00 65 /min Universi ty of [facility] Respiratory rate 2021-04-08 06:00:00 18 /min Univ ersity of [facility] Oxygen saturation in 2021-04-08 06:00:00 99 /min University of Arterial blood by [facility] Pulse oximetry Branch Body temperature 2021-04-08 00:31:00 35.78 Agatha Univ ersity of [facility] Body height 2021-04-08 00:31:00 182.9 cm Universi ty of [facility] Body weight 2021-04-08 00:31:00 87.544 kg Universi ty of [facility] BMI 2021-04-08 00:31:00 26.18 kg/m2 Universi ty [facility] Systolic blood 2021-03-01 19:25:00 130 mm[Hg] Univer sity of [facility] Diastolic blood 2021-03-01 19:25:00 95 mm[Hg] Unive rsity of [facility] Heart rate 2021-03-01 19:25:00 123 /min Universi ty [facility] Oxygen saturation in 2021-03-01 19:25:00 96 /min University of Arterial blood by [facility] Pulse oximetry Branch Body temperature 2021-03-01 19:23:00 36.94 Agatha Univ ersity of [facility] Respiratory rate 2021-03-01 19:23:00 20 /min Univ ersity of [facility] Body weight 2021-03-01 19:23:00 85.276 kg Universi ty of [facility] BMI 2021-03-01 19:23:00 25.50 kg/m2 Universi ty [facility] Procedures Procedure Date / Time Performing Clinician Source Performed ACTIVATED PARTIAL 2021-04-10 20:34:00 Cooper [place] [facility] THREast [facility] TRANSTHORACIC ECHO (TTE) 2021-04-10 18:10:00 Rodolfo Khan [facility] COMPLETE W/ CONTRAST Medical [facility] [place] MYOCARDIUM PERFUSION 2021-04-10 16:36:00 Erin [facility] STRESS AND REST Medical Branch MAGNESIUM 2021-04-10 08:08:00 Erin, [facility] BASIC METABOLIC PANEL 2021-04-10 08:08:00 [facility] (NA, K, CL, CO2, GLUCOSE, Medica l Branch BUN, CREATININE, CA) CBC WITHOUT DIFF 2021-04-10 08:08:00 Erin, [facility] PROTHROMBIN TIME / INR 2021-04-10 08:08:00 Erin [facility] ACTIVATED PARTIAL 2021-04-10 08:08:00 [facility]ON PANEL 2021-04-09 18:03:00 Erin, [facility] ACTIVATED PARTIAL 2021-04-09 18:03:00 [facility] MAGNESIUM 2021-04-09 07:18:00 Erin, [facility] FERRITIN SERUM 2021-04-09 07:18:00 Erin, [facility] HEPATIC FUNCTION PANEL 2021-04-09 07:18:00 [facility] ([id number]) (ALB,T.PRO,BILI Medical Branch T,BU/BC,ALT,AST,ALK PHOS) BASIC METABOLIC PANEL 2021-04-09 07:18:00 [facility] (NA, K, CL, CO2, GLUCOSE, Medica l Branch BUN, CREATININE, CA) CBC WITH DIFF 2021-04-09 07:18:00 [place], [facility] ACTIVATED PARTIAL 2021-04-09 05:02:00 [place], [facility] ACTIVATED PARTIAL 2021-04-08 19:49:00 [place], [facility] HEPARIN ANTI-XA, 2021-04-08 19:49:00 [facility] Medical [facility] PHOSPHORUS 2021-04-08 12:37:00 [place], [facility] MAGNESIUM 2021-04-08 12:37:00 [place], [facility] HEPATIC FUNCTION PANEL 2021-04-08 12:37:00 [place], [facility] ([id number]) (ALB,T.PRO,BILI Medical Branch T,BU/BC,ALT,AST,ALK PHOS) BASIC METABOLIC PANEL 2021-04-08 12:37:00 [facility] (NA, K, CL, CO2, GLUCOSE, Medica l Branch BUN, CREATININE, CA) CBC WITH DIFF 2021-04-08 12:37:00 [facility] [facility] PROTHROMBIN TIME / INR 2021-04-08 12:37:00 [facility] ACTIVATED PARTIAL 2021-04-08 12:37:00 [facility] LACTIC ACID WHOLE BLOOD 2021-04-08 10:39:00 [facility] LACTIC ACID WHOLE BLOOD 2021-04-08 04:35:00 Fadi [facility] COVID-19 (ID NOW RAPID 2021-04-08 03:54:00 [facility] TESTING) Medical Branch US GALL BLADDER 2021-04-08 03:21:59 Fadi [facility] CT ABDOMEN PELVIS W 2021-04-08 01:59:11 Salma Aponte [facility] CONTRAST [facility] Branch XR CHEST 1 VW 2021-04-08 01:16:16 Fadi Sal[facility] LIPASE 2021-04-08 01:10:00 Fadi [facility] TROPONIN I 2021-04-08 01:10:00 Fadi [facility] COMP. METABOLIC PANEL 2021-04-08 01:10[id number] CBC WITH DIFF 2021-04-08 [facility]:10[facility] INR 2021-04-08 01:10:00 [facility] ACTIVATED PARTIAL 2021-04-08 [facility] 2021-04-08 01:10:00 [facility] LACTIC ACID WHOLE BLOOD 2021-04-08 01:10:00 [facility] NOTICE OF PRIVACY 2021-04-08 00:27:19 Doctor BetinassYeison acevedo [facility] PRACTICES [place] [facility] CONSENT/REFUSAL FOR 2021-04-08 00:26:04 Doctor Unassigned, [facility] DIAGNOSIS AND TREATMENT [place] [facility] Encounters Start End Encounter Admission Attending Care Care Encounter Source Date/Time Date/Time Type Type Clinicians Facility Department ID 2021-03-27 Outpatient 3 [id number] [facility] OTH [id number] [facility] 14:33:46 0214 2021-03-22 Outpatient 3 [id number] [facility] REF [id number] [facility] 13:12:36 0209 2021-04-14 2021-04-14 Outpatient Paige SANTANA [facility] [id number] Univers 14:00:00 14:00:00 EUNICE [id number] [facility] 2021-04-11 2021-04-11 Transition RADHA Moise [id number] Univers 00:00:00 00:00:00 of Care An PENNY 350.1.13.10 [facility] 4.2.7.2.686 [facility] [id number] [facility] 403 Branch 2021-04-08 2021-04-10 [facility] [id number] Univers 02:02:00 18:25:00 [facility] 2021-04-08 2021-04-10 [facility] Jeff Lai 1.2.840.11 [id number] Univers 02:02:00 18:25:00 Encounter Dedirck Cohen 350.1.13. 10 [facility] 4.2.7.2.686 [place] [id number] [facility] 100 Branch 2021 2021-04-08 Emergency X [facility] ERT [id number] Univers 18:28:00 00:55:00 SALMA [facility] 2021 2021-04-08 Emergency [facility] [id number] Univers 18:28:00 00:55:00 Salma SKELTON 350.1.13.10 i [place] [id number] [facility] 084 [place] 2021-03-08 2021-03-08 [facility]phone [facility] [id number] Univers 00:00:00 00:00:00 Renetta SKELTON 350.1.13.10 i [place] [id number] Ak dical NAL 231 [facility] 2021-03-01 2021-03-01 Office Ranjit [facility] 1.2.840.114 [id number] [facility] 13:00:00 14:53:22 Visit Isai SKELTON 350.1.13.10 ity [facility] [place] [id number] Ak dical NAL 044 [facility] 2021-03-01 2021-03-01 Outpatient R ISAI CHURCH [facility] [id number] Univers 13:00:00 14:53:22 ISAI CHURCH [facility] Results Test Description Test Time [...] normal/abnormal. Lab Interpretation (test code Abnormal = 64334-4) [facility] (NA, K, CL, CO2, GLUCOSE, BUN, CREATININE, CA)2021-04-10 08:47:39 Test Item Value Reference Range Interpretation Comments NA (test code = 135 mmol/L 135-145 8259562310) K (test code = 3.8 mmol/L 3.5-5.0 4972494767) CL (test code = 104 mmol/L 98-108 4972882694) CO2 TOTAL (test code = 25 mmol/L 23-31 8215640985) AGAP (test code = 2-16 0107629960) BUN (test code = 25 mg/dL 7-23 H 5178135376) GLUCOSE (test code = 266 mg/dL 70-110 H 2827030675) CREATININE (test code = 1.23 mg/dL 0.60-1.25 8441989655) CALCIUM (test code = 7.7 mg/dL 8.6-10.6 L 3007877199) eGFR (test code = mL/min/1.73m2 4114619375) MEGHANN (test code = MEGHANN) Association of [...] tests). Lab Interpretation Abnormal (test code = 38063-1) [facility] 08[facility]47:39 Test Item Value Reference Range Interpretation Comments MAGNESIUM (test code = 3693872425) 1.8 mg/dL 1.7-2.4 Lab Interpretation (test code = Normal 83666-0) [facility] with [facility] Infusion)2021-04-10 08:25:37 Test Item Value Reference Range Interpretation Comments APTT Patient (test code See_Comment H [Au tomated message] = 3173-2) The system [employer] generated this result transmitted ref erence range: 26 - 36 Seconds. The reference range was not used to int erpret this result as normal/abnormal . Lab Interpretation (test Abnormal code = 57125-6) [facility] / [id number] 08:25:37 Test Item Value Reference Range Interpretation Comments PROTIME PATIENT (test See_Comment H [Auto mated message] code = 5964-2) The system [employer] generated this result transmitted ref erence range: 10.1 - 1 2.6 Seconds. The reference range was not used to int erpret this result as normal/abnormal . INR (test code = 6301-6) Nor mal INR <1.1; Warfarin Therap eutic range 2.0 to 3. 0 or 2.5 to 3.5, dep ending upon the indica tions. Lab Interpretation (test Abnormal code = 92041-4) [facility] WITHOUT [id number] 08:20:56 Test Item Value Reference Range Interpretation Comments WBC (test code = 6690-2) See_Comment [A utomated message] The system [employer] generated this result transmit liborio reference range : 4.20 - 10.70 10*3/?L. The reference range was not used to interpret this result as normal/abnormal . RBC (test code = 789-8) See_Comment L [Au tomated message] The system [employer] generated this result transmit liborio reference range [...] See_Comment L [Au tomated message] The system [employer] generated this result transmit liborio reference range : 150 - 328 10*3/?L. The reference range was not used to interpret this result as normal/abnormal . MPV (test code = 11.6 fL 9.8-13.0 39041-3) RDW-CV (test code = 19.8 % 12.1-15.4 H 788-0) RDW-SD (test code = 56.7 fL 38.5-51.6 H 36899-4) NRBC x10^3 (test code = <0.01 See_Comment [Au tomated message] 9677695421) The system [employer] generated this result transmit liborio reference range : 10*3/?L. The reference range was not used to interpret this result as normal/abnormal . NRBC/100 WBC (test code See_Comment [Au tomated message] = 7033505196) The system [employer] generated this result transmit liborio reference range : 0.0 - 10.0 /100 WBC s. The reference r yovani was not used to interpret this result as normal/abnormal . IPF % (test code = 3986471863) Lab Interpretation (test Abnormal code = 10156-4) [facility] HospitalIRON [id number] 19:08:59 Test Item Value Reference Range Interpretation Comments IRON (test code = 9653921080) 18 ug/dL 50-160 L TIBC (test code = 8434087615) 409 ug/dL 250-410 % FE SAT (test code = 9372301879) 4 % 20-50 L Lab Interpretation (test code = Abnormal 86697-1) [facility] HospitalFERRITIN [id number] 18:39:35 Test Item Value Reference Range Interpretation Comments FERRITIN (test code = 11.5 ng/mL 18.0-464.0 L 8094563084) MEGHANN (test code = MEGHANN) Biotin has been reported to cause a negative bias, interpret results relative to patient's use of biotin. Lab Interpretation (test Abnormal code = 48312-7) [facility] use with [facility] Infusion)2021-04-09 18:30:37 Test Item Value Reference Range Interpretation Comments APTT Patient (test code See_Comment H [Au tomated message] = 3173-2) The system [employer] generated this result transmitted ref erence range: 26 - 36 Seconds. The reference range was not used to int erpret this result as normal/abnormal . Lab Interpretation (test Abnormal code = 83435-4) [facility] Hospital[facility] with [id number] 08:13:01 Test Item Value Reference Range Interpretation [...] (test code = 57.3 fL 38.5-51.6 H 63005-7) RDW-CV (test code = 19.9 % 12.1-15.4 H 788-0) PLT (test code = See_Comment L [Automated 777-3) message] The sy stem which generated this result transmitted reference range : 150 - 328 10*3/ ?L. The reference r yovani was not used to interpret this result as normal/abnormal . MPV (test code = 11.8 fL 9.8-13.0 33438-6) IPF % (test code = 2.7 % 1.2-10.7 Platelet count 5151168657) measured by fluorescence method. NRBC/100 WBC (test See_Comment [Automat ed code = 4970061481) message] The system which generated this result transmitted reference range : 0.0 - 10.0 /100 WBCs. The refer ence range was not u sed to interpret th is result as normal/abnormal . NRBC x10^3 (test code <0.01 See_Comment [Auto mated = 7391306771) message] The s ystem which generated this result transmitted reference range : 10*3/?L. The reference range was not used to interpret this result as normal/abnormal . GRAN MAT (NEUT) % 62.3 % (test code = 770-8) IMM GRAN % (test code 0.20 % = 4810825956) LYMPH % (test code = 24.8 % 736-9) MONO % (test code = 9.3 % 5905-5) EOS % (test code = 3.0 % 713-8) BASO % (test code = 0.4 % 706-2) GRAN MAT x10^3(ANC) 3.55 10*3/uL 1.99-6.95 (test code = 4889164602) IMM GRAN x10^3 (test <0.03 0.00-0.06 code = 2615977216) LYMPH x10^3 (test code 1.41 10*3/uL 1.09-3.23 [...] (test 2+ See_Comment [Automa liborio code = 15481-5) message] The system which generated this result transmitted reference range : 2+. The referen ce range was not u sed to interpret th is result as normal/abnormal . Lab Interpretation Abnormal (test code = 52752-0) [facility] Metabolic Panel (NA, K, CL, CO2, GLUCOSE, BUN, CREATININE, CA)2021-04-09 07:45:28 Test Item Value Reference Range Interpretation Comments NA (test code = 138 mmol/L 135-145 6868962853) K (test code = 3.6 mmol/L 3.5-5.0 7112222432) CL (test code = 111 mmol/L 98-108 H 0940858756) CO2 TOTAL (test code = 21 mmol/L 23-31 L 9422197384) AGAP (test code = 2-16 9724279068) BUN (test code = 23 mg/dL 7-23 8169485244) GLUCOSE (test code = 169 mg/dL 70-110 H 5624899527) CREATININE (test code = 1.09 mg/dL 0.60-1.25 8642430741) CALCIUM (test code = 7.3 mg/dL 8.6-10.6 L 4559691222) eGFR (test code = mL/min/1.73m2 2770025250) MEGHANN (test code = MEGHANN) Association of [...] tests). Lab Interpretation Abnormal (test code = 75645-8) [facility]2022-02-27 07:45:28 Test Item Value Reference Range Interpretation Comments MAGNESIUM (test code = 3060679913) 1.7 mg/dL 1.7-2.4 Lab Interpretation (test code = Normal 06875-1) [facility] HospitalHEPAT[facility] FUNCTION PANEL (26816) (ALB,T.PRO,BILI T,BU/BC,ALT,AST,ALK PHOS)2021-04-09 07:45:28 Test Item Value Reference Range Interpretation Comments TOTAL BILI (test code = 4293277068) 0.9 mg/dL 0.1-1.1 BILI UNCON (test code = 2598105217) 0.3 mg/dL 0.1-1.1 BILI CONJ (test code = 0351393910) 0.0 mg/dL 0.0-0.3 T PROTEIN (test code = 9808986368) 4.9 g/dL 6.3-8.2 L ALBUMIN (test code = 9135197592) 2.7 g/dL 3.5-5.0 L ALK PHOS (test code = 0806278770) 93 U/L 34-122 ALTv (test code = 1742-6) 66 U/L 5-50 H AST(SGOT) (test code = 9709722330) 83 U/L 13-40 H Lab Interpretation (test code = Abnormal 72928-2) [facility]for use with Heparin Infusion)2021-04-09 05:28:19 Test Item Value Reference Range Interpretation Comments APTT Patient (test code See_Comment H [Au tomated message] = 3173-2) The system [employer] generated this result transmitted ref erence range: 26 - 36 Seconds. The reference range was not used to int erpret this result as normal/abnormal . Lab Interpretation (test Abnormal code = 26369-6) [facility]-Xa, Unfractionated Heparin 2021-04-08 20:24:59 Test Item Value Reference Range Interpretation Comments Anti-Xa UFH (test code = See_Comment H [A utomated message] 3274-8) The system [employer] generated this result transmitted ref erence range: 0.30 - 0 .70 IU/mL. The refe rence range was not u sed to interpret this result as normal/abnor mal. Lab Interpretation (test Abnormal code = 45507-7) [facility] use with Heparin Infusion)2021-04-08 20:21:39 Test Item Value Reference Range Interpretation Comments APTT Patient (test code See_Comment HH [Au tomated message] = 3173-2) The system [employer] generated this result transmitted ref erence range: 26 - 36 Seconds. The reference range was not used to int erpret this result as normal/abnormal . Lab Interpretation (test Abnormal code = 29960-1) [facility] (NA, K, CL, CO2, GLUCOSE, BUN, CREATININE, CA)2021-04-08 13:48:35 Test Item Value Reference Range Interpretation Comments NA (test code = 139 mmol/L 135-145 2219218119) K (test code = 4.4 mmol/L 3.5-5.0 9839802559) CL (test code = 109 mmol/L 98-108 H 1637090520) CO2 TOTAL (test code = 23 mmol/L 23-31 9225476353) AGAP (test code = 2-16 9484934303) BUN (test code = 25 mg/dL 7-23 H 7205574701) GLUCOSE (test code = 177 mg/dL 70-110 H 7065822407) CREATININE (test code = 1.11 mg/dL 0.60-1.25 8082036491) CALCIUM (test code = 8.4 mg/dL 8.6-10.6 L 5547729271) eGFR (test code = mL/min/1.73m2 4948914598) MEGHANN (test code = MEGHANN) Association of [...] tests). Lab Interpretation Abnormal (test code = 47873-6) [facility]HEPAT[facility] FUNCTION PANEL (62471) (ALB,T.PRO,BILI T,BU/BC,ALT,AST,ALK PHOS)2021-04-08 13:48:35 Test Item Value Reference Range Interpretation Comments TOTAL BILI (test code = 1857434284) 1.0 mg/dL 0.1-1.1 BILI UNCON (test code = 2638385516) 0.6 mg/dL 0.1-1.1 BILI CONJ (test code = 0583090693) 0.0 mg/dL 0.0-0.3 T PROTEIN (test code = 5196439836) 5.7 g/dL 6.3-8.2 L ALBUMIN (test code = 3772607476) 3.4 g/dL 3.5-5.0 L ALK PHOS (test code = 2467277365) 122 U/L 34-122 ALTv (test code = 1742-6) 73 U/L 5-50 H AST(SGOT) (test code = 2384249298) 106 U/L 13-40 H Lab Interpretation (test code = Abnormal 36126-9) [facility] HospitalMagnesium [id number] 13:48:35 Test Item Value Reference Range Interpretation Comments MAGNESIUM (test code = 5769123783) 1.5 mg/dL 1.7-2.4 L Lab Interpretation (test code = Abnormal 47746-4) [facility] HospitalPhosphorus [id number] 13:48:35 Test Item Value Reference Range Interpretation Comments PHOSPHORUS (test code = 9284173545) 3.9 mg/dL 2.5-5.0 Lab Interpretation (test code = Normal 89920-9) [facility] HospitalProthrombin Time / [id number] 13:10:10 Test Item Value Reference Range Interpretation [...] tions. Lab Interpretation (test Abnormal code = 03379-3) [facility]aPTT2022-02-26 13:10:10 Test Item Value Reference Range Interpretation Comments APTT Patient (test code = See_Comment [ Automated message] 3173-2) The system [employer] generated this result transmitted ref erence range: 26 - 36 Seconds. The re ference range was not u sed to interpret this result as normal/abnor mal. Lab Interpretation (test Normal code = 29171-2) [facility] WITH [id number] 12:58:52 Test Item Value Reference Range Interpretation Comments WBC (test code = See_Comment [Automated 5909-2) message] The sy stem which generated this [...] (test code = 58.4 fL 38.5-51.6 H 11741-1) RDW-CV (test code = 20.3 % 12.1-15.4 H 788-0) PLT (test code = See_Comment L [Automated 777-3) message] The sy stem which generated this result transmitted reference range : 150 - 328 10*3/ ?L. The reference r yovani was not used to interpret this result as normal/abnormal . MPV (test code = 12.0 fL 9.8-13.0 51079-2) NRBC/100 WBC (test See_Comment [Automat ed code = 8986397760) message] The system which generated this result transmitted reference range : 0.0 - 10.0 /100 WBCs. The refer ence range was not u sed to interpret th is result as normal/abnormal . NRBC x10^3 (test code See_Comment [Auto mated = 7782645444) message] The s ystem which generated this result transmitted reference range : 10*3/?L. The reference range was not used to interpret this result as normal/abnormal . GRAN MAT (NEUT) % 70.3 % (test code = 770-8) IMM GRAN % (test code 0.50 % = 1335715021) LYMPH % (test code = 17.3 % 736-9) MONO % (test code = 11.2 % 5905-5) EOS % (test code = 0.3 % 713-8) BASO % (test code = 0.4 % 706-2) GRAN MAT x10^3(ANC) 5.32 10*3/uL 1.99-6.95 (test code = 6816422394) IMM GRAN x10^3 (test 0.04 10*3/uL 0.00-0.06 code = 4029737040) LYMPH x10^3 (test code 1.31 10*3/uL 1.09-3.23 = 731-0) MONO x10^3 (test code 0.85 10*3/uL 0.36-1.02 = 742-7) EOS x10^3 (test code = <0.03 0.06-0.53 L 711-2) BASO x10^3 (test code 0.03 10*3/uL 0.01-0.09 = 704-7) Lab Interpretation Abnormal (test code = 69366-5) [facility] HospitalL[facility] Acid Whole [id number] 10:49:13 Test Item Value Reference Range Interpretation Comments LACTIC ACID (test code = 2.02 mmol/L 0.50-2.20 QUE S 6275955065) Lab Interpretation (test code = Normal 15076-5) [facility] HospitalTROPONIN [id number] 05:02:32 Test Item Value Reference Interpretation Comments Range TROPONIN I (test <0.012 See_Comment [Automated code = 7153494237) message] The system which generated this result [...] biotin. Lab Interpretation Normal (test code = 97477-9) [facility] HospitalN-TERMINAL [id number] 04:59:36 Test Item Value Reference Range Interpretation Comments NT-proBNP (test code 7010 pg/mL See_Comment H [Autom ated = 5968684718) message] The system which generated this result transmitted reference range : <=450. The reference range was not used to interpret this result as normal/abnormal . MEGHANN (test code = MEGHANN) Biotin has been reported to cause a negative bias, interpret results relative to patient's use of biotin. Lab Interpretation Abnormal (test code = 36384-4) [facility]. METABOLIC PANEL (78740)2021-04-08 01:39:51 Test Item Value Reference Range Interpretation Comments NA (test code = 139 mmol/L 135-145 4266441664) K (test code = 4.7 mmol/L 3.5-5.0 2238529270) CL (test code = 102 mmol/L 98-108 1093411958) CO2 TOTAL (test code = 23 mmol/L 23-31 9132454860) AGAP (test code = 2-16 0139773150) BUN (test code = 28 mg/dL 7-23 H 0783929451) GLUCOSE (test code = 155 mg/dL 70-110 H 6331956892) CREATININE (test code = 1.41 mg/dL 0.60-1.25 H 3058056096) TOTAL BILI (test code = 1.0 mg/dL 0.1-1.0 1002813532) CALCIUM (test code = 8.8 mg/dL 8.6-10.6 8188824918) T PROTEIN (test code = 6.2 g/dL 6.3-8.2 L 7281621717) ALBUMIN (test code = 4.0 g/dL 3.5-5.0 7315267765) ALK PHOS (test code = 122 U/L 34-122 0556436796) ALTv (test code = 40 U/L 5-50 1742-6) AST(SGOT) (test code = 71 U/L 13-40 H 2521060809) eGFR (test code = mL/min/1.73m2 1159289830) MEGHANN (test code = MEGHANN) Association of [...] tests). Lab Interpretation Abnormal (test code = 30921-5) [facility]LIP[facility]2022-[facility] 01:39:30 Test Item Value Reference Range Interpretation Comments LIPASE (test code = 1963842808) 75 U/L 0-220 Lab Interpretation (test code = Normal 37876-1) [facility] HospitalACTIVATED PARTIAL THRMPLAS [id number] 01:36:53 Test Item Value Reference Range Interpretation Comments APTT Patient (test See_Comment [Automat ed code = 3173-2) message] The system which generated this result transmitted reference range : 23 - 38 Seconds . The reference range was not used to interpr et this result as normal/abnormal . MEGHANN (test code = MEGHANN) [facility] patient population mean normal value for aPTT is 30 seconds. Lab Interpretation Normal (test code = 02639-3) [facility] HospitalPROTHROMBIN TIME / [id number] 01:34:51 Test Item Value Reference Range Interpretation [...] tions. Lab Interpretation (test Abnormal code = 96475-7) [facility] WITH [id number] 01:27:31 Test Item Value Reference Range Interpretation Comments WBC (test code = See_Comment [Automated 6390-2) message] The sy stem which generated this [...] (test code = 61.3 fL 38.5-51.6 H 75568-6) RDW-CV (test code = 20.8 % 12.1-15.4 H 788-0) PLT (test code = See_Comment [Automated 777-3) message] The sy stem which generated this result transmitted reference range : 150 - 328 10*3/ ?L. The reference r yovani was not used to interpret this result as normal/abnormal . MPV (test code = 12.3 fL 9.8-13.0 33901-2) NRBC/100 WBC (test See_Comment [Automat ed code = 6091238063) message] The system which generated this result transmitted reference range : 0.0 - 10.0 /100 WBCs. The refer ence range was not u sed to interpret th is result as normal/abnormal . NRBC x10^3 (test code <0.01 See_Comment [Auto mated = 1563736360) message] The s ystem which generated this result transmitted reference range : 10*3/?L. The reference range was not used to interpret this result as normal/abnormal . GRAN MAT (NEUT) % 58.9 % (test code = 770-8) IMM GRAN % (test code 0.30 % = 8914551642) LYMPH % (test code = 27.5 % 736-9) MONO % (test code = 11.2 % 5905-5) EOS % (test code = 1.5 % 713-8) BASO % (test code = 0.6 % 706-2) GRAN MAT x10^3(ANC) 5.08 10*3/uL 1.99-6.95 (test code = 8909778435) IMM GRAN x10^3 (test 0.03 10*3/uL 0.00-0.06 code = 0231985774) LYMPH x10^3 (test code 2.37 10*3/uL 1.09-3.23 = 731-0) MONO x10^3 (test code 0.97 10*3/uL 0.36-1.02 = 742-7) EOS x10^3 (test code = 0.13 10*3/uL 0.06-0.53 711-2) BASO x10^3 (test code 0.05 10*3/uL 0.01-0.09 = 704-7) Lab Interpretation Abnormal (test code = 75983-7) [facility]"
[2021-04-28 02:39] LABS: Absolute Lymphocytes (CBC) 1.8 K/uL (0.7-4.9); Hematocrit 34.1 % (39.6-49.0); Lymphocytes % 33.7 % (15.3-44.8); MPV 8.7 fL (7.6-11.3); RBC Red Blood Cell Count 4.19 M/uL (4.33-5.43)
[2021-04-28 03:00] LABS: Troponin High Sensitivity 13.1 pg/mL (<58.9)
[2021-04-28 03:04] LABS: Blood Morphology Comment NOTED (NOT SEEN); Platelet Estimate ADEQ; White Blood Cell Scan OK (OK)
[2021-04-28 03:05] LABS: Anisocytosis 1+; Burr Cells 1+; Elliptocytes 2+; Ovalocytes 1+; Poikilocytosis 1+; Teardrop Cell 1+
[2021-04-28] MEDS ORDERED: TRAMADOL HCL 50 MG TAB ONE (03:34)
[2021-04-28] MEDS ORDERED: METHYLPREDNISOLONE 125 MG INJ ONE (04:08)
[2021-04-28] MEDS ORDERED: KETOROLAC 30 MG/ML INJ ONE (04:08)
--- NOTE | 2021-04-28 04:37 | ER ---
Nurse's Notes [facility] Name: Santiago Barney Age: 76 yrs Sex: Male : 1945 Arrival Date: 04/28/2021 Time: 00:51 Bed 28 Private MD: Diagnosis: Chest pain, unspecified;Chest pain on breathing;Pain in right shoulder Presentation: 04/28 01:10 Chief complaint: Patient states: "I'm having what seems like a muscle spasm in my right vc1 shoulder and pain and pressure over my heart.". Coronavirus screen: Vaccine status: Patient reports receiving the 2nd dose of the covid vaccine. booster, Moderna At this time, the client does not indicate any symptoms associated with coronavirus-19. Ebola Screen: No symptoms or risks identified at this time. Initial Sepsis Screen: Does the patient meet any 2 criteria? No. Patient's initial sepsis screen is negative. Does the patient have a suspected source of infection? No. Patient's initial sepsis screen is negative. Risk Assessment: Do you want to hurt yourself or someone else? Patient reports no desire to harm self or others. Onset of symptoms was April 27, 2021 at 18:00. 01:10 Method Of Arrival: Ambulatory vc1 01:10 Acuity: BOB 3 vc1 Triage Assessment: 01:14 General: Appears in no apparent distress. Behavior is calm, cooperative, appropriate vc1 for age. Pain: Complains of pain in posterior aspect of right shoulder and chest Pain does not radiate. Pain currently is 7 out of 10 on a pain scale. Neuro: Level of Consciousness is awake, alert, obeys commands, Oriented to person, place, time, situation, Appropriate for age. Cardiovascular: Reports chest pain. Respiratory: Airway is patent Respiratory effort is even, unlabored, Respiratory pattern is regular, symmetrical. Historical: - Allergies: 01:14 Sulfa (Sulfonamide Antibiotics); vc1 - Home Meds: 01:14 Eliquis 5 mg oral tab [Active]; vc1 - PMHx: 01:14 Atrial fibrillation; Bipolar disorder; Diabetes mellitus; vc1 - PSHx: 01:14 Quadruple bypass; Tonsillectomy; vc1 - Immunization history:: Adult Immunizations up to date, Client reports receiving the 2nd dose of the Covid vaccine, Pneumococcal vaccine is up to date, Flu vaccine is not up to date. - Social history:: Smoking status: Patient denies any tobacco usage or history of. Screenin:39 Abuse screen: Denies threats or abuse. Denies injuries from another. Nutritional willian screening: No deficits noted. Tuberculosis screening: No symptoms or risk factors identified. Fall Risk None identified. Assessment: 01:31 Reassessment: Patient appears in no apparent distress at this time. I recv'd the pt to willian room 28 at this time. 01:44 General: Appears in no apparent distress. comfortable, The pt reports,"I've got a willian muscle spasm...it's across my shoulder...I was watching [employer]...". 02:53 General: Although the pt is able to remove his shoes, place socks on his feet, etc.., willian he is asking all these things, and more to be done. He is very complimentary, but very needy.. 03:26 Reassessment: The pt was sleeping, awoke and asked if the "doctor was gonna give me willian anything for the pain". MD will be informed. 04:00 Reassessment: pt at first front ventilator speaking to EDP states he is still hurting the pain bb medication "is not working" new orders received pt medicated see APR. 04:30 Reassessment: The pt recv'd other medication and just called me into the room to state willian "it worked...I'm ready to go home.." Thankfully, the MD was seeing the pt next door and I had him speak with him. He nodded and went back to his other pt. He is now speaking with the MD. 04:40 Reassessment: Awaiting dc paperwork. willian Vital Signs: 01:10 Weight 77.11 kg; Height 6 ft. 0 in. (182.88 cm); Pain 10/10; vc1 01:10 BP 129 / 79; Pulse 57; Resp 16; Temp 97.7; Pulse Ox 98% ; vc1 01:38 BP 127 / 81; Pulse 59; Resp 18; Temp 98.6; Pulse Ox 100% on R/A; Pain 3/10; willian 02:52 BP 137 / 82; Pulse 60; Resp 18; Pulse Ox 100% on R/A; Pain 0/10; willian 03:26 BP 125 / 68; Pulse 57; Resp 16; Pulse Ox 100% on R/A; Pain 0/10; willian 04:30 BP 109 / 74; Pulse 60; Resp 16; Pulse Ox 100% on R/A; Pain 2/10; willian 01:10 Body Mass Index 23.06 (77.11 kg, 182.88 cm) vc1 ED Course: 00:51 Patient arrived in ED. wm 01:14 Triage completed. vc1 01:18 Arm band placed on right wrist. vc1 01:31 Latanya Quiroz, BRITTNEE is Primary Nurse. willian 01:31 Eddie Grissom MD is Attending Physician. kdr 01:39 Bed in low position. Call light in reach. Door closed. Noise minimized. Lights dimmed. willian Warm blanket given. Pillow given. 01:39 No provider procedures requiring assistance completed. willian 01:46 XRAY Chest (1 view) In Process Unspecified. EDMS 02:18 Troponin HS Sent. willian 02:18 CBC with Diff Sent. willian 02:18 Basic Metabolic Panel Sent. willian 04:40 intact, bleeding controlled, No redness/swelling at site. Pressure dressing applied. willian Administered Medications: 03:15 Drug: traMADol 50 mg Route: PO; willian 04:42 Follow up: Response: Pain is decreased willian 04:16 Drug: Ketorolac 15 mg Route: IVP; Site: left hand; bb 04:42 Follow up: Response: Pain is decreased willian 04:16 Drug: SOLU-Medrol (methylPrednisoLONE) 125 mg Route: IVP; Site: left hand; bb 04:42 Follow up: Response: Pain is decreased willian Outcome: 01:40 Condition: stable willian 04:36 Discharge ordered by . kdr 04:45 Discharged to home ambulatory. willian 04:45 Discharge instructions given to patient, Instructed on discharge instructions, follow up and referral plans. medication usage, Demonstrated understanding of instructions, follow-up care, medications, Prescriptions given X 3. 04:46 Patient left the ED. willian Signatures: Dispatcher [employer] EDMS Eddie Grissom MD MD kdr Ballard, Brenda, Thuy Dupree RN Latanya Quiroz RN RN bo Calcote, Vanessa, RN RN vc1
--- NOTE | 2021-04-28 04:37 | EDPHYS ---
Physician Documentation [facility] Name: Santiago Barney Age: 76 yrs Sex: Male : 1945 Arrival Date: 04/28/2021 Time: 00:51 Bed 28 Private MD: ED Physician Eddie Grissom HPI: 04/28 04:42 This 76 yrs old Male presents to ER via Ambulatory with complaints of Shoulder Pain. kdr 04:43 Patient states that he has been having pain in his right scapula for the past day or 2. kdr He is also had pain in his left lateral superior chest. He denies any other associated signs or symptoms. Onset: The symptoms/episode began/occurred 2 day(s) ago. Severity of symptoms: At their worst the symptoms were mild in the emergency department the symptoms are unchanged. The patient has not experienced similar symptoms in the past. The patient has not recently seen a physician. Denies any trauma or injury associated with the pain. Historical: - Allergies: 01:14 Sulfa (Sulfonamide Antibiotics); vc1 - Home Meds: 01:14 Eliquis 5 mg oral tab [Active]; vc1 - PMHx: 01:14 Atrial fibrillation; Bipolar disorder; Diabetes mellitus; vc1 - PSHx: 01:14 Quadruple bypass; Tonsillectomy; vc1 - Immunization history:: Adult Immunizations up to date, Client reports receiving the 2nd dose of the Covid vaccine, Pneumococcal vaccine is up to date, Flu vaccine is not up to date. - Social history:: Smoking status: Patient denies any tobacco usage or history of. ROS: 04:43 Constitutional: Negative for fever, chills, and weight loss, Eyes: Negative for injury, kdr pain, redness, and discharge, Neck: Negative for injury, pain, and swelling, Respiratory: Negative for shortness of breath, cough, wheezing, and pleuritic chest pain, Abdomen/GI: Negative for abdominal pain, nausea, vomiting, diarrhea, and constipation, Back: Negative for injury and pain, : Negative for injury, bleeding, discharge, and swelling, MS/Extremity: Negative for injury and deformity, Skin: Negative for injury, rash, and discoloration, Neuro: Negative for headache, weakness, numbness, tingling, and seizure activity. Psych: Negative for depression, anxiety, suicide ideation, homicidal ideation, and hallucinations, Allergy/Immunology: Negative for hives, rash, and allergies, Endocrine: Negative for neck swelling, polydipsia, polyuria, polyphagia, and marked weight changes, Hematologic/Lymphatic: Negative for swollen nodes, abnormal bleeding, and unusual bruising. 04:43 Cardiovascular: Positive for chest pain, of the right scapular area, left clavicle and anterior aspect of left upper chest. Exam: 04:43 Constitutional: This is a well developed, well nourished patient who is awake, alert, kdr and in no acute distress. Head/Face: Normocephalic, atraumatic. Eyes: Pupils equal round and reactive to light, extra-ocular motions intact. Lids and lashes normal. Conjunctiva and sclera are non-icteric and not injected. Cornea within normal limits. Periorbital areas with no swelling, redness, or edema. Neck: Trachea midline, no thyromegaly or masses palpated, and no cervical lymphadenopathy. Supple, full range of motion without nuchal rigidity, or vertebral point tenderness. No Meningismus. Chest/axilla: Normal chest wall appearance and motion. Nontender with no deformity. No lesions are appreciated. Cardiovascular: Regular rate and rhythm with a normal S1 and S2. No gallops, murmurs, or rubs. Normal PMI, no JVD. No pulse deficits. Respiratory: Lungs have equal breath sounds bilaterally, clear to auscultation and percussion. No rales, rhonchi or wheezes noted. No increased work of breathing, no retractions or nasal flaring. Abdomen/GI: Soft, non-tender, with normal bowel sounds. No distension or tympany. No guarding or rebound. No evidence of tenderness throughout. Back: No spinal tenderness. No costovertebral tenderness. Full range of motion. Skin: Warm, dry with normal turgor. Normal color with no rashes, no lesions, and no evidence of cellulitis. MS/ Extremity: Pulses equal, no cyanosis. Neurovascular intact. Full, normal range of motion. Neuro: Awake and alert, GCS 15, oriented to person, place, time, and situation. Cranial nerves II-XII grossly intact. Motor strength 5/5 in all extremities. Sensory grossly intact. Cerebellar exam normal. Normal gait. Psych: Awake, alert, with orientation to person, place and time. Behavior, mood, and affect are within normal limits. Vital Signs: 01:10 Weight 77.11 kg; Height 6 ft. 0 in. (182.88 cm); Pain 10/10; vc1 01:10 BP 129 / 79; Pulse 57; Resp 16; Temp 97.7; Pulse Ox 98% ; vc1 01:38 BP 127 / 81; Pulse 59; Resp 18; Temp 98.6; Pulse Ox 100% on R/A; Pain 3/10; willian 02:52 BP 137 / 82; Pulse 60; Resp 18; Pulse Ox 100% on R/A; Pain 0/10; willian 03:26 BP 125 / 68; Pulse 57; Resp 16; Pulse Ox 100% on R/A; Pain 0/10; willian 04:30 BP 109 / 74; Pulse 60; Resp 16; Pulse Ox 100% on R/A; Pain 2/10; willian 01:10 Body Mass Index 23.06 (77.11 kg, 182.88 cm) vc1 MDM: 04:36 Patient medically screened. kdr 04:43 Data reviewed: vital signs, nurses notes, lab test result(s), radiologic studies. kdr Counseling: I had a detailed discussion with the patient and/or guardian regarding: the historical points, exam findings, and any diagnostic results supporting the discharge/admit diagnosis, lab results, radiology results, the need for outpatient follow up. 04/28 01:32 Order name: Basic Metabolic Panel; Complete Time: 03:54 kdr 04/28 01:32 Order name: CBC with Diff; Complete Time: 03:54 kdr 04/28 01:32 Order name: Troponin HS; Complete Time: 03:54 kdr 04/28 01:32 Order name: XRAY Chest (1 view) kdr 04/28 02:44 Order name: CBC Smear Scan; Complete Time: 03:54 EDMS 04/28 01:32 Order name: EKG; Complete Time: 01:33 kdr 04/28 01:32 Order name: Cardiac monitoring; Complete Time: 02:19 kdr 04/28 01:32 Order name: EKG - Nurse/Tech; Complete Time: 02:02 kdr 04/28 01:32 Order name: IV Saline Lock; Complete Time: 02:19 kdr 04/28 01:32 Order name: Labs collected and sent; Complete Time: 02:19 kdr 04/28 01:32 Order name: O2 Per Protocol; Complete Time: 02:19 kdr 04/28 01:32 Order name: O2 Sat Monitoring; Complete Time: : kdr Administered Medications: 03:15 Drug: traMADol 50 mg Route: PO; willian 04:42 Follow up: Response: Pain is decreased willian 04:16 Drug: Ketorolac 15 mg Route: IVP; Site: left hand; bb 04:42 Follow up: Response: Pain is decreased willian 04:16 Drug: SOLU-Medrol (methylPrednisoLONE) 125 mg Route: IVP; Site: left hand; bb 04:42 Follow up: Response: Pain is decreased willian Disposition Summary: 04/28/21 04:36 Discharge Ordered Location: Home kdr Problem: new kdr Symptoms: have improved kdr Condition: Stable kdr Diagnosis - Chest pain, unspecified kdr - Chest pain on breathing kdr - Pain in right shoulder kdr Followup: kdr - With: Private Physician - When: 2 - 3 days - Reason: If symptoms return, Further diagnostic work-up, Recheck today's complaints, Continuance of care, Re-evaluation by your physician Discharge Instructions: - Discharge Summary Sheet kdr - Shoulder Pain, [id number] kdr - Nonspecific Chest Pain, Adult, [id number] kdr Forms: - Medication Reconciliation Form kdr - Thank You Letter kdr Prescriptions: - Ibuprofen 600 mg Oral Tablet - take 1 tablet by ORAL route every 6 hours As needed take with food; 30 tablet; kdr Refills: 0, Product Selection Permitted - Medrol (Handy) 4 mg Oral Tablets, Dose Pack - take 1 tablet by ORAL route as directed - follow package instructions; 1 kdr packet; Refills: 0, Product Selection Permitted - Cyclobenzaprine 5 mg Oral Tablet - take 1 tablet by ORAL route 3 times per day As needed; 15 tablet; Refills: 0, kdr Product Selection Permitted Signatures: Dispatcher [employer] Eddie Hernandez MD MD kdr Ballard, Brenda RN RN Latanya Arellano RN RN bo Calcote, Vanessa, RN RN vc1
[2021-04-28 07:40] VITALS: TEMP 98.6; O2SAT 100
[2021-04-28 07:44] VITALS: BP 109/74
--- NOTE | 2021-04-28 12:18 | RAD REPORT ---
EXAM DESCRIPTION: RAD - Chest Single View - 04/28/2021 1:46 am CLINICAL HISTORY: 76 years, Male, CHEST PAIN COMPARISON: None. FINDINGS: Single view of the chest was obtained portable. No prior films are available for compariso n. Sternotomy wires and pericardiac clips correspond to previous CABG. The cardiomediastinal silhouet te demonstrate to be unremarkable. The heart is not enlarged. The thoracic aorta is unremarkable. C ostophrenic angles are sharp. No areas of consolidation or masses are seen. The rest of the soft tissue and bony structures demonstrate to be unremarkable. IMPRESSION: No acute cardiopulmonary disease. Status post CABG. Electronically signed by: London Bar MD 04/28/2021 2:20 AM CDT Due to temporary technical issues with the PACS/Fluency reporting system, reports are being signed by the in house radiologist without review as a courtesy to ensure prompt reporting. The interpreting r adiologist is fully responsible for the content of the report.
--- NOTE | 2021-05-01 08:27 | EKG ---
Test Date: 2021-04-28 Test Time: 01:26:08 [employer] Apprentice: YISEL MEASUREMENT RESULTS: Intervals: Rate: 57 MA: 166 QRSD: 144 QT: 514 QTc: 500 [place]: P: 34 MA: 166 QRS: -56 T: -7 INTERPRETIVE STATEMENTS: Sinus bradycardia Left axis deviation Right bundle branch block Abnormal ECG No previous ECG available for comparison Electronically Signed On 05-01-21 08:22:49 CDT by Marc Holman
== END 2021-04-28 04:46 | disposition home or self-care (01) ==
LOC: ER 00:46
DX: R07.1 Chest pain on breathing (principal); M25.511 Pain in right shoulder; E11.9 Type 2 diabetes mellitus without complications; I48.91 Unspecified atrial fibrillation; Z79.01 Long term (current) use of anticoagulants; Z88.2 Allergy status to sulfonamides
CPT/HCPCS: 93005; 85025; 80048; 36415; 84484; 71045; 96375; 96374; 99284; J2930